=== PATIENT | male | born 1970 | race Caucasian/White ===

== ENCOUNTER 2021-02-22 16:03 | Inpatient (IN) | payer OTHER, SELFPAY ==
--- OUTSIDE RECORDS SUMMARY | 2021-02-22 16:06 | XMS REPORT | Continuity of Care Document ---
:1970 Author Organization [facility] t Address [address] Garcia [address] [place] [id number] Care Team Providers Name Role Phone Dennis Gagnon DO Primary Care Physician Shelby Valdez DO Attending Clinician SAMI Attending Clinician Unavailable Payers Payer Name Policy Type Policy Number Effective Date Expiration Date S ource 90 [id number] 2019 [employer]ondenominational DEGREE/ENTRUS 00:00:00 [facility] TENTRU / 90 DEGREE BENEFITSxxxxx 52030/08/2019- PresentCommer cial Problems Condition Condition Condition Status Onset Resolution Last Treating Co mments Source Name Details Category Date Date Treatment Clinician Date Kidney Kidney Disease Active Overview: Method i stones stones 3-[address] [facility] [address] 00:00: g of this Hospita 00 note l might be different from the original. Added automatic ally from request for surgery [id number] Allergies, Adverse Reactions, Alerts This patient has no known allergies or adverse reactions. Family History Family Member Diagnosis Comments Start Date Stop Date Source Natural father Alcohol abuse [facility] Natural mother No Known Problems Met [facility] Social History Social Habit Start Date Stop Date Quantity Comments Source Alcohol intake 2021-01-03 2021-01-03 0 /d [facility] 00:00:00 00:00:00 Tobacco use and 2021-01-03 2021-01-03 Never used [facility] exposure 00:00:00 00:00:00 Sex [birth year] [facility] 00:00:00 00:00:00 Smoking Status Start Date Stop Date Source Never smoker [facility] al Medications Ordered Filled Start Stop Current Ordering Indication Dosage Frequency Signature Comments Components Source Medication Medication Date Date Medication? Clinician (SIG) Name Name methylPREDN 4mg Q.5D Take 4 mg [facility] ISolone 01-[address] (MEDROL 15:59: 00:00 (two) Hospita DOSEPAK) 4 07 :00 times a l mg tablet day. follow package directions meloxicam Yes 15mg QD Take 15 mg Me thodi (MOBIC) 15 01-[address] mg tablet 15:42: daily. Hospit a 45 l predniSONE Take 2 Meth sonya (DELTASONE) 01-[address] 20 mg 00:00: 04:59 (40 mg Hospita tablet 00 :00 total) by l mouth daily for 2 days, THEN 1 tablet (20 mg total) daily for 2 days. cyclobenzap 10mg [id number] Take 1 Methodi rine 08-15-12 [id number] tablet (10 st (FLEXERIL) 00:00: 05:59 3D mg total) H ospita 10 mg 00 :00 by mouth 3 l tablet (three) times a day as needed for muscle spasms for up to 30 days. predniSONE Take 2 Meth sonya (DELTASONE) 08-15 02-[address] 20 mg 00:00: 05:59 (40 mg Hospita tablet 00 :00 total) by l mouth daily for 4 days, THEN 1 tablet (20 mg total) daily for 4 days. Vital Signs Vital Name Observation Time Observation Value Comments Source Body height 2021-01-03 15:42:00 177.8 cm [facility] Body weight 2021-01-03 15:42:00 106.142 kg [facility] BMI 2021-01-03 15:42:00 33.58 kg/m2 [facility] Procedures This patient has no known procedures. Plan of Care Planned Activity Planned Date Details Comments Source Future Scheduled Test COVID-19 VACCINE (1) [facility] [code = COVID-19 VACCINE (1)] Future Scheduled Test Hepatitis C screening [facility] (procedure) [code = 545834711] Future Scheduled Test INFLUENZA VACCINE [facility] [code = INFLUENZA VACCINE] Encounters Start End Encounter Admission Attending Care Care Encounter Source Date/Time Date/Time Type Type Clinicians Facility Department ID 2021-01-03 2021-01-03 Office José MiguelEugene monroe 1.2.840.1 [id number] [facility] 10:14:18 11:03:36 [address] [place]. [address]1.[address] 3.430.2.7 Hospit a .3.687983 l .8 2021-01-03 2021-01-03 Travel 1.2.840.1 [id number] [facility] 00:00:00 00:00:[address] 3.430.2.7 0.2.7.3.698 Ho spita .3.226265 084.8 l .8 2021-01-03 2021-01-03 Outpatient [facility] [id number] [address] [place] 00:00:00 00:00:[address] 2020-08-15 2020-08-15 Telemedici Eugene Valdez 1.2.840.1 [id number] [facility] 14:35:08 14:42:46 [place] 3.430.2.7 Hospit a .3.410359 l .8 2020-08-15 2020-08-15 Outpatient JOSÉ MIGUEL [facility] [id number] [place] 00:00:00 00:00:[address] 2020-01-17 2020-01-17 Outpatient JOSÉ MIGUEL [facility] [id number] [place] 00:00:00 00:00:[address] 2020-01-12 2020-01-12 [id number] [place] 00:00:00 00:00:[address] 2019-12-29 2019-12-29 [id number] [place] 00:00:00 00:00:[address] 2019-12-29 2019-12-29 Outpatient JOSÉ MIGUEL, [facility] [id number] [place] 00:00:00 00:00:[address] 2019-09-25 2019-09-25 Outpatient SAMI [facility] [id number] [place] 00:00:00 00:00:00 PRISCILLA [address] 2019-09-17 2019-09-17 Outpatient SAMI [facility] [id number] [place] 00:00:00 00:00:00 PRISCILLA [address] 2019-09-15 2019-09-15 Outpatient SAMI [facility] [id number] [place] 00:00:00 00:00:00 PRIS[address]LLA [address] Results This patient has no known results.
[2021-02-22 17:38] LABS: Absolute Lymphocytes (CBC) 0.4 K/uL (0.7-4.9); Hematocrit 49.7 % (39.6-49.0); RBC Red Blood Cell Count 5.66 M/uL (4.33-5.43)
[2021-02-22 17:40] LABS: Protime INR 1.28
--- NOTE | 2021-02-22 17:46 | RAD REPORT ---
EXAM DESCRIPTION: RAD - Chest Pa And Lat (2 Views) - 02/22/2021 5:34 pm CLINICAL HISTORY: SOB Chest pain. COMPARISON: No comparisons FINDINGS: Slfm-oh-pnsuphoe pulmonary opacities are present, greater on the left. This likely represe nts infection/COVID infection. The heart is normal in size. No displaced fractures.
[2021-02-22 18:06] LABS: ALT/SGPT 49 U/L (12-78); AST/SGOT 53 U/L (15-37); Albumin 3.3 g/dL (3.4-5.0); Alkaline Phosphatase 57 U/L (45-117); BUN Blood Urea Nitrogen 15 mg/dL (7-18); Bicarbonate 27 mmol/L (21-32); Bilirubin Direct 0.4 mg/dL (0-0.2); Bilirubin Total 0.9 mg/dL (0.2-1.0); Glucose Level 121 mg/dL (74-106); Magnesium 2.2 mg/dL (1.8-2.4); NT PRO-BNP 90 pg/mL (<125); Potassium 4.1 mmol/L (3.5-5.1); Protein, Total 7.3 g/dL (6.4-8.2); Sodium Level 130 mmol/L (136-145); Troponin (Emerg Dept Use Only) < 0.02 ng/mL (0.0-0.045)
[2021-02-22] MEDS ORDERED: ACETAMINOPHEN 500 MG TAB ONE ×2 (18:11→21:17)
[2021-02-22] MEDS ORDERED: ONDANSETRON 4 MG/2 ML VIAL ONE ×2 (18:11→21:17)
[2021-02-22] MEDS ORDERED: NA CHLORIDE 0.9% 1,000 ML ONE (18:25)
[2021-02-22 18:48] LABS: Ferritin 1118.6 ng/mL (26-388)
--- NOTE | 2021-02-22 19:01 | RAD REPORT ---
EXAM DESCRIPTION: CT - Chest For Pe Angio - 02/22/2021 6:50 pm CLINICAL HISTORY: Chest pain. Cough;SOB COMPARISON: No comparisons TECHNIQUE: CT angiogram of the pulmonary arteries was performed with MIP. All CT scans are performed using dose optimization technique as appropriate and may include automated exposure control or mA/KV adjustment according to patient size. FINDINGS: No evidence of pulmonary thromboembolism. No acute aortic finding demonstrated. Moderate bilateral confluent consolidation is present most compatible with COVID-19. No significant pericardial or pleural fluid. No concerning bony finding. IMPRESSION: No evidence of pulmonary thromboembolism. Moderate pulmonary findings of COVID-19 infection suspected.
[2021-02-22] MEDS ORDERED: METHYLPREDNISOLONE 125 MG INJ ONE (19:26)
--- NOTE | 2021-02-22 19:32 | EDPHYS ---
Physician Documentation [facility] Name: Zaid Shabazz Age: 50 yrs Sex: Male : 1970 Arrival Date: 02/22/2021 Time: 16:07 Bed 7 Private MD: ED Physician Jakob Stallworth HPI: 02/22 17:30 This 50 yrs old Male presents to ER via Ambulatory with complaints of Covid + cp sob, Dizziness. 17:30 The patient has shortness of breath at rest. cp 17:30 Onset: The symptoms/episode began/occurred yesterday, and became worse today. Duration: cp The symptoms are continuous, and are steadily getting worse. The patient's shortness of breath is aggravated by light activity. Associated signs and symptoms: Pertinent positives: non-productive cough, dizziness, Pertinent negatives: chest pain, diaphoresis, fever, vomiting. Patient reports testing positive for COVID-10 on 02-17-2021. Patient reports he is not vaccinated against the COVID-19 virus and presents to ED with who has similar symptoms. Historical: - Allergies: 17:10 No Known Allergies; kg - Home Meds: 17:10 None [Active]; kg - PMHx: 17:10 None; kg - PSHx: 17:10 None; kg - Immunization history:: Adult Immunizations up to date, Client reports having NOT received the Covid vaccine. - Social history:: Smoking status: Patient denies any tobacco usage or history of. ROS: 17:35 Constitutional: Positive for body aches, Negative for fever, poor PO intake. cp 17:35 Eyes: Negative for injury, pain, redness, and discharge. cp 17:35 ENT: Negative for ear pain, sore throat, difficulty swallowing, difficulty handling secretions. 17:35 Cardiovascular: Negative for chest pain, edema, palpitations. 17:35 Respiratory: Positive for cough, "sounds productive", shortness of breath, at rest. Negative for wheezing. 17:35 Abdomen/GI: Positive for nausea, Negative for abdominal pain, vomiting, diarrhea, constipation. 17:35 Back: Negative for radiated pain. 17:35 Neuro: Positive for dizziness, Negative for altered mental status, loss of consciousness, syncope, weakness. 17:35 All other systems are negative. Exam: 17:40 Constitutional: The patient appears in no acute distress, alert, awake, cp non-diaphoretic, non-toxic, well developed, well nourished. 17:40 Head/Face: Normocephalic, atraumatic. cp 17:40 Eyes: Periorbital structures: appear normal, Conjunctiva: normal, no exudate, no injection, Sclera: no appreciated abnormality, Lids and lashes: appear normal, bilaterally. 17:40 ENT: External ear(s): are unremarkable, Nose: is normal, Mouth: Lips: moist, Oral mucosa: pink and intact, moist, Posterior pharynx: Airway: no evidence of obstruction, patent, swelling, is not appreciated, erythema, is not appreciated, exudate, is not appreciated. 17:40 Neck: ROM/movement: is normal, is supple, without pain, no range of motions limitations, no meningismus. 17:40 Chest/axilla: Inspection: normal, Palpation: is normal, no crepitus, no tenderness. 17:40 Cardiovascular: Rate: normal, Rhythm: regular, Edema: is not appreciated, JVD: is not appreciated. 17:40 Respiratory: the patient does not display signs of respiratory distress, Respirations: labored breathing, that is mild, shallow respirations, that is mild, Breath sounds: decreased breath sounds, that are mild, throughout, stridor, is not appreciated, wheezing: is not appreciated. 17:40 Abdomen/GI: Exam negative for discomfort, distension, guarding, Inspection: abdomen appears normal. 17:40 Back: pain, is absent, ROM is normal. 17:40 Skin: no rash present. 17:40 Neuro: Orientation: to person, place \\T\\ time. Mentation: is normal, Motor: moves all fours, strength is normal. Vital Signs: 17:00 Pulse Ox 85% on R/A; kg 17:04 BP 132 / 86; Pulse 96; Resp 20; Temp 98.8; Pulse Ox 95% on 3 lpm NC; Weight 99.79 kg kg (R); Height 5 ft. 10 in. (177.80 cm) (R); Pain 9/10; 17:45 BP 133 / 85; Pulse 101; Resp 19; Temp 100.4(O); Pulse Ox 92% on 4 lpm NC; ld1 19:34 BP 128 / 86; Pulse 96; Resp 18; Temp 99.4(O); Pulse Ox 94% on 4 lpm NC; ld1 02/23 17:35 BP 135 / 82; Pulse 74; Resp 18; Pulse Ox 91% on 4 lpm NC; dh3 02/22 17:04 Body Mass Index 31.57 (99.79 kg, 177.80 cm) kg MDM: 02/22 17:47 Patient medically screened. cp 18:00 Differential diagnosis: Bronchitis CHF exacerbation, Myocardial Infarction pneumonia, cp Pneumothorax pulmonary edema, Pulmonary Embolism Sepsis Unstable Angina. 19:10 Data reviewed: vital signs, nurses notes, lab test result(s), EKG, radiologic studies, cp CT scan, plain films. 19:10 Test interpretation: by ED physician or midlevel provider: ECG, plain radiologic cp studies. Counseling: I had a detailed discussion with the patient and/or guardian regarding: the historical points, exam findings, and any diagnostic results supporting the discharge/admit diagnosis, lab results, radiology results, the need for further work-up and treatment in the hospital. Response to treatment: the patient's symptoms have mildly improved after treatment. 19:15 Physician consultation: Geronimo ANDERSON was called at 19:15, was contacted at 19:15, regarding admission, to the telemetry unit. patient's condition, and will see patient in ED, shortly. 02/22 17:13 Order name: D-Dimer; Complete Time: 18:32 kg 02/22 17:22 Order name: Basic Metabolic Panel; Complete Time: 18:32 kg 02/22 18:33 Interpretation: Normal except: NA 130; CL 96; GLUC 121; GFR 60. cp 02/22 17:22 Order name: CBC with Diff; Complete Time: 18:32 kg 02/22 17:22 Order name: LFT's; Complete Time: 18:32 kg 02/22 17:22 Order name: Magnesium; Complete Time: 18:32 kg 02/22 17:22 Order name: NT PRO-BNP; Complete Time: 18:32 kg 02/22 17:22 Order name: PT-INR; Complete Time: 17:50 kg 02/22 17:22 Order name: Troponin (emerg Dept Use Only); Complete Time: 18:32 kg 02/22 17:47 Order name: CRP; Complete Time: 18:55 cp 02/22 18:55 Interpretation: Abnormal: C-REACTIVE PROT 104.00. cp 02/22 17:47 Order name: Ferritin; Complete Time: 18:55 cp 02/22 20:39 Order name: C-Reactive Protein EDMS 02/22 20:39 Order name: C-Reactive Protein EDMS 02/22 20:39 Order name: C-Reactive Protein EDMS 02/22 20:39 Order name: C-Reactive Protein EDMS 02/22 20:39 Order name: Comprehensive Metabolic Panel EDMS 02/22 20:39 Order name: Comprehensive Metabolic Panel EDMS 02/22 20:39 Order name: Comprehensive Metabolic Panel EDMS 02/22 20:39 Order name: Comprehensive Metabolic Panel EDMS 02/22 20:39 Order name: Comprehensive Metabolic Panel EDMS 02/22 20:40 Order name: Urinalysis EDMS 02/22 20:40 Order name: CBC with Automated Diff EDMS 02/22 20:40 Order name: CBC with Automated Diff EDMS 02/22 20:40 Order name: CBC with Automated Diff EDMS 02/22 20:40 Order name: CBC with Automated Diff EDMS 02/22 20:40 Order name: CBC with Automated Diff EDMS 02/22 20:40 Order name: D-Dimer EDMS 02/22 20:40 Order name: D-Dimer EDMS 02/22 20:40 Order name: D-Dimer EDMS 02/22 20:40 Order name: D-Dimer EDMS 02/22 20:41 Order name: Ferritin EDMS 02/22 17:13 Order name: XRAY Chest Pa And Lat (2 Views); Complete Time: 17:50 kg 02/22 18:36 Order name: CT Chest For PE Angio; Complete Time: 19:05 cp 02/22 20:41 Order name: Ferritin EDMS 02/22 20:41 Order name: Ferritin EDMS 02/22 20:41 Order name: Ferritin EDMS 02/22 20:41 Order name: Lipid Profile EDMS 02/22 20:41 Order name: Lipid Profile EDMS 02/22 20:41 Order name: Magnesium EDMS 02/22 20:41 Order name: Magnesium EDMS 02/22 20:41 Order name: Magnesium EDMS 02/22 20:41 Order name: Magnesium EDMS 02/22 20:41 Order name: Magnesium EDMS 02/22 20:41 Order name: T4 Free EDMS 02/22 20:41 Order name: T4 Free EDMS 02/22 20:41 Order name: Thyroid Stimulating Hormone EDMS 02/22 20:41 Order name: Thyroid Stimulating Hormone EDMS 02/23 13:16 Order name: CBC Smear Scan EDMS 02/24 12:09 Order name: CBC Smear Scan EDMS 02/25 01:27 Order name: Urine Microscopic Only EDMS 02/25 08:19 Order name: Glucose, Ancillary Testing EDMS 02/26 03:26 Order name: C-Reactive Protein EDMS 02/26 03:26 Order name: Ferritin EDMS 02/26 07:02 Order name: Urine Culture EDMS 02/27 05:16 Order name: CBC with Automated Diff EDMS 02/27 05:27 Order name: Basic Metabolic Panel EDMS 02/27 05:27 Order name: C-Reactive Protein EDMS 02/27 05:27 Order name: Ferritin EDMS 02/27 07:40 Order name: RAD EDMS 02/22 17:22 Order name: IV Saline Lock; Complete Time: 17:26 kg 02/22 17:22 Order name: Labs collected and sent; Complete Time: 17:26 kg 02/22 17:22 Order name: O2 Per Protocol; Complete Time: 17:26 kg 02/22 17:22 Order name: O2 Sat Monitoring; Complete Time: 17:26 kg 02/22 20:40 Order name: Respiratory Therapy Consult EDMS 02/22 20:40 Order name: Heart Healthy EDMS Administered Medications: 17:45 Drug: Tylenol 1000 mg Route: PO; ld1 18:52 Follow up: Response: No adverse reaction ld1 18:00 Drug: Zofran (Ondansetron) 4 mg Route: IVP; Site: left antecubital; ld1 18:23 Follow up: Response: No adverse reaction ld1 18:15 Drug: NS 0.9% 1000 ml Route: IV; Rate: 1 bolus; Site: left antecubital; ld1 18:23 Follow up: Response: Marked relief of symptoms; IV Intake: 1000ml ld1 19:08 Drug: SOLU-Medrol (methylPrednisoLONE) 125 mg Route: IVP; Site: left antecubital; ld1 19:08 Follow up: Response: No adverse reaction ld1 Disposition Summary: 02/22/21 19:31 Hospitalization Ordered Hospitalization Status: Inpatient Admission cp Provider: Adriano Jimenez cp Condition: Stable cp Problem: new cp Symptoms: have improved cp Bed/Room Type: Standard cp Location: Telemetry/MedSurg (Inpatient)(02/27/21 17:58) Room Assignment: 405(02/27/21 17:58) Diagnosis - Other viral pneumonia cp - SARS-associated coronavirus as the cause of diseases classified elsewhere cp - Hypoxemia cp Forms: - Medication Reconciliation Form cp - SBAR form cp Addendum: 03/01/2021 18:55 Co-signature as Attending Physician, Jakob Stallworth MD I agree with the assessment and r n plan of care. Attestation: The patient's history, exam findings, diagnostics, and a summary of any interventions or procedures was reviewed in detail with Frank PRECIADO. Signatures: Dispatcher [employer] Annia Cuadra RN RN kl Nieto, Roman, MD MD rn Page, Corey, PA PA Hannah Seth RN RN Jolanta Yan RN RN ld1 Mica Dahl RN RN kg Corrections: (The following items were deleted from the chart) 02/22 23:30 19:31 Telemetry/MedSurg (Inpatient) cp cg 23:30 19:31 cp cg 02/27 17:58 02/22 23:30 [facility] ER HOLD cg kl 02/27 17:58 02/22 23:30 ERHOLD- cg
--- NOTE | 2021-02-22 19:32 | ER ---
Nurse's Notes [facility] Name: Zaid Shabazz Age: 50 yrs Sex: Male : 1970 Arrival Date: 02/22/2021 Time: 16:07 Bed 7 Private MD: Diagnosis: Other viral pneumonia;SARS-associated coronavirus as the cause of diseases classified elsewhere;Hypoxemia Presentation: 02/22 17:04 Chief complaint: Patient states: Cough, SOB, Dizziness, Nausea, diarrhea. Pt stated, " kg I've been feeling very SOB and dizzy x 1 day." Pt was diagnosed COVID + 02/17. Coronavirus screen: Client denies travel out of the [place] in the last 14 days. At this time, unable to obtain information related to travel outside the [place] Ebola Screen: Patient negative for fever greater than or equal to 101.5 degrees Fahrenheit, and additional compatible Ebola Virus Disease symptoms Patient denies exposure to infectious person. Patient denies travel to an Ebola-affected area in the 21 days before illness onset. Initial Sepsis Screen: Does the patient meet any 2 criteria? No. Patient's initial sepsis screen is negative. Does the patient have a suspected source of infection? No. Patient's initial sepsis screen is negative. Risk Assessment: Do you want to hurt yourself or someone else? Patient reports no desire to harm self or others. Onset of symptoms was February 21, 2021. 17:04 Method Of Arrival: Ambulatory kg 17:04 Acuity: RAH 3 kg Triage Assessment: 17:10 General: Appears in no apparent distress. Behavior is calm, cooperative, appropriate kg for age, quiet. Pain: Complains of pain in Head, chest Pain radiates to Generalized. Respiratory: Reports shortness of breath at rest on exertion cough that is productive, pain with cough. Historical: - Allergies: 17:10 No Known Allergies; kg - Home Meds: 17:10 None [Active]; kg - PMHx: 17:10 None; kg - PSHx: 17:10 None; kg - Immunization history:: Adult Immunizations up to date, Client reports having NOT received the Covid vaccine. - Social history:: Smoking status: Patient denies any tobacco usage or history of. Screenin:45 Abuse screen: Denies threats or abuse. Denies injuries from another. Nutritional ld1 screening: No deficits noted. Tuberculosis screening: No symptoms or risk factors identified. Fall Risk None identified. Assessment: 17:45 General: Appears in no apparent distress. comfortable, Behavior is calm, cooperative, ld1 appropriate for age. Pain: Denies pain. Neuro: Level of Consciousness is awake, alert, obeys commands, Oriented to person, place, time, situation. Cardiovascular: Capillary refill < 3 seconds Patient's skin is warm and dry. Respiratory: Reports shortness of breath at rest cough that is Airway is patent Respiratory effort is even, unlabored, Respiratory pattern is regular, symmetrical. 17:45 GI: Abdomen is flat, non-distended. : No signs and/or symptoms were reported ld1 regarding the genitourinary system. EENT: No signs and/or symptoms were reported regarding the EENT system. Derm: Skin is clammy. Musculoskeletal: No signs and/or symptoms reported regarding the musculoskeletal system. 19:34 Reassessment: Patient appears in no apparent distress at this time. No changes from ld1 previously documented assessment. Vital Signs: 17:00 Pulse Ox 85% on R/A; kg 17:04 BP 132 / 86; Pulse 96; Resp 20; Temp 98.8; Pulse Ox 95% on 3 lpm NC; Weight 99.79 kg kg (R); Height 5 ft. 10 in. (177.80 cm) (R); Pain 9/10; 17:45 BP 133 / 85; Pulse 101; Resp 19; Temp 100.4(O); Pulse Ox 92% on 4 lpm NC; ld1 19:34 BP 128 / 86; Pulse 96; Resp 18; Temp 99.4(O); Pulse Ox 94% on 4 lpm NC; ld1 02/23 17:35 BP 135 / 82; Pulse 74; Resp 18; Pulse Ox 91% on 4 lpm NC; dh3 02/22 17:04 Body Mass Index 31.57 (99.79 kg, 177.80 cm) kg ED Course: 02/22 16:07 Patient arrived in ED. ds1 17:10 Triage completed. kg 17:18 Frank Reynolds PA is PHCP. cp 17:18 Jakob Stallworth MD is Attending Physician. cp 17:24 Jolanta Yan, TABATHA is Primary Nurse. ld1 17:34 XRAY Chest Pa And Lat (2 Views) In Process Unspecified. EDMS 17:45 Patient has correct armband on for positive identification. Bed in low position. Call ld1 light in reach. Pulse ox on. NIBP on. Warm blanket given. 17:45 No provider procedures requiring assistance completed. Inserted saline lock: 20 gauge ld1 in left antecubital area, using aseptic technique. Blood collected. 18:49 CT Chest For PE Angio In Process Unspecified. EDMS 19:30 Adriano Jimenez MD is Hospitalizing Provider. 02/27 07:27 Primary Nurse role handed off by Jolanta Yan, TABATHA 07:27 Karmen Harp RN is Primary Nurse. 19:08 Primary Nurse role handed off by Karmen Harp RN Administered Medications: 02/22 17:45 Drug: Tylenol 1000 mg Route: PO; ld1 18:52 Follow up: Response: No adverse reaction ld1 18:00 Drug: Zofran (Ondansetron) 4 mg Route: IVP; Site: left antecubital; ld1 18:23 Follow up: Response: No adverse reaction ld1 18:15 Drug: NS 0.9% 1000 ml Route: IV; Rate: 1 bolus; Site: left antecubital; ld1 18:23 Follow up: Response: Marked relief of symptoms; IV Intake: 1000ml ld1 19:08 Drug: SOLU-Medrol (methylPrednisoLONE) 125 mg Route: IVP; Site: left antecubital; ld1 19:08 Follow up: Response: No adverse reaction ld1 Intake: 18:23 IV: 1000ml; Total: 1000ml. ld1 Outcome: 19:31 Decision to Hospitalize by Provider. 02/27 20:09 Patient left the ED. ms4 Signatures: Dispatcher [employer] EDMS Karmen Harp, Jing Bowie RN1 Frank Reynolds PA PA cp Herrera, Deanna 3 Jolanta Yan, RN RN ld1 Mica Dahl RN RN kg Stroud, Mikaela RN RN ms4
--- NOTE | 2021-02-22 20:11 | P.HP ---
Certification for Inpatient Patient admitted to: Inpatient With expected LOS: >2 Midnights Patient will require the following post-hospital care: None Practitioner: I am a practitioner with admitting privileges, knowledge of patient current condition, hospital course, and medical plan of care. Services: Services provided to patient in accordance with Admission requirements found in Title 42 Section 412.3 of the Code of Federal Regulations <FerGeronimo - Last Filed: 02/22/21 20:00> Patient History Date of Service: 02/22/21 Primary Care Provider: Dr. Gagnon Reason for admission: COVID-19 pneumonia History of Present Illness: 50-year-old otherwise healthy male presents emergency department for shortness of breath. Patient reports testing positive for Covid on 02/17/2021, has been on Decadron, ivermectin at home. Patient reports increasing shortness of breath over the course of the last few days. Patient was evaluated in the emergency room and labs are significant for D-dimer 724 sodium 130 chloride 96 GFR 60 glucose 121 ferritin 1118.6 C-reactive protein 104 chest x-ray demonstrates mild to moderate pulmonary opacities greater on the left likely representing Covid, CT PE protocol negative for pulmonary embolism again demonstrating COVID-19 pneumonia. Patient requiring oxygen about 4 L per nasal cannula at this time to maintain saturations greater than 90%. ED provider wishes to admit for further evaluation and management. - Past Medical/Surgical History -: None -: none Psychosocial/ Personal History: Lives with , works at [employer] - Social History Smoking Status: Never smoker Alcohol use: No CD- Drugs: No Caffeine use: No Place of Residence: Home <Geronimo Monroe - Last Filed: 02/22/21 20:00> Date of Service: 02/23/21 <Adriano Jimenez - Last Filed: 02/23/21 16:14> Review of Systems 10-point ROS is otherwise unremarkable Respiratory: Cough, Dry, Shortness of Breath, SOB with Excertion <Geronimo Monroe - Last Filed: 02/22/21 20:00> Physical Examination - Physical Exam General: Alert, In no apparent distress, Oriented x3 HEENT: Atraumatic, PERRLA, Mucous membr. moist/pink, EOMI, Sclerae nonicteric Neck: Supple, 2+ carotid pulse no bruit, No LAD, Without JVD or thyroid abnormality Respiratory: Normal air movement, Diminished Cardiovascular: Regular rate/rhythm, Normal S1 S2 Gastrointestinal: Normal bowel sounds, No tenderness Musculoskeletal: No tenderness Integumentary: No rashes Neurological: Normal gait, Normal speech, Normal strength at 5/5 x4 extr, Normal tone, Normal affect Lymphatics: No axilla or inguinal lymphadenopathy - Studies Laboratory Data (last 24 hrs) 02/22/21 17:28: PT 14.8 H, INR 1.28 02/22/21 17:28: WBC 9.90, Hgb 17.1, Hct 49.7 H, Plt Count 160 02/22/21 17:28: Sodium 130 L, Potassium 4.1, BUN 15, Creatinine 1.27, Glucose 121 H, Magnesium 2.2, Total Bilirubin 0.9, AST 53 H, ALT 49, Alkaline Phosphatase 57 <Geronimo Monroe - Last Filed: 02/22/21 20:00> - Studies Laboratory Data (last 24 hrs) 02/22/21 17:28: PT 14.8 H, INR 1.28 02/22/21 17:28: WBC 9.90, Hgb 17.1, Hct 49.7 H, Plt Count 160 02/22/21 17:28: Sodium 130 L, Potassium 4.1, BUN 15, Creatinine 1.27, Glucose 121 H, Magnesium 2.2, Total Bilirubin 0.9, AST 53 H, ALT 49, Alkaline Phosphatase 57 <Adriano Jimenez - Last Filed: 02/23/21 16:14> Assessment and Plan - Plan Assessment: Acute hypoxic respiratory failure secondary to COVID-19 pneumonia Plan: Acute hypoxic respiratory failure secondary to COVID-19 pneumonia: Continue with IV steroids, oral supplements, patient status post Decadron/ivermectin at home per primary care doctor. CRP significantly elevated but patient requiring about 4 L per nasal cannula at this time, may qualify for baricitinib in the next 24 hours. Pulmonology consulted for additional assistance, daily right saturations, saturations for home O2. Appreciate further input from pulmonology. DVT PPX: Lovenox Code status: Full Discharge Plan: Home Plan to discharge in: 48 Hours - Advance Directives Does patient have a Living Will: Yes Does patient have a Durable POA for Healthcare: Yes - Code Status/Comfort Care Code Status Assessed: Yes (FC) Critical Care: No Time Spent Managing Pts Care (In Minutes): 55 <Geronimo Monroe - Last Filed: 02/22/21 20:00> Physician Review: Patient Assessed, Agree with Above Assessment and Plan <Adriano Jimenez - Last Filed: 02/23/21 16:14>
[2021-02-22] MEDS ORDERED: BENZONATATE 100 MG CAP PO ONE (21:16)
[2021-02-23] MEDS: MELATONIN 5 MG TABLET PO PRN ×2 (00:30→21:11)
[2021-02-23] MEDS: METHYLPREDNISOLONE 125 MG INJ IV SCH ×3 (00:30→17:00)
[2021-02-23] MEDS: ASCORBIC ACID 500 MG TABLET PO SCH ×5 (00:30→21:00)
[2021-02-23] MEDS ORDERED: ASCORBIC ACID 500 MG TABLET ONE ×5 (00:32→20:49)
[2021-02-23] MEDS ORDERED: MELATONIN 5 MG TABLET PO ONE ×2 (00:32→20:49)
[2021-02-23] MEDS ORDERED: METHYLPREDNISOLONE 40 MG INJ ONE ×3 (00:33→17:49)
[2021-02-23] MEDS: ACETAMINOPHEN 500 MG TAB PO PRN (00:40)
[2021-02-23] MEDS ORDERED: ACETAMINOPHEN 500 MG TAB ONE ×2 (00:53→06:33)
[2021-02-23] MEDS: ONDANSETRON 4 MG/2 ML VIAL IV PRN (06:24)
[2021-02-23] MEDS ORDERED: ONDANSETRON 4 MG/2 ML VIAL ONE (06:33)
[2021-02-23 06:42] LABS: Absolute Lymphocytes (CBC) 0.5 K/uL (0.7-4.9); Basophils % 0.1 % (0-1.3); Hematocrit 49.3 % (39.6-49.0); Lymphocytes % 8.3 % (15.3-44.8); MPV 8.6 fL (7.6-11.3)
[2021-02-23 06:52] LABS: Bilirubin Total 0.7 mg/dL (0.2-1.0); Magnesium 2.6 mg/dL (1.8-2.4); Potassium 4.4 mmol/L (3.5-5.1); Thyroid Stimulating Hormone 0.598 uIU/mL (0.360-3.740)
[2021-02-23] MEDS ORDERED: THIAMINE HCL 100 MG TABLET ONE (08:28)
[2021-02-23] MEDS ORDERED: VITAMIN D 1000 UNIT TAB ONE (08:29)
[2021-02-23] MEDS ORDERED: METHYLPREDNISOLONE 125 MG INJ ONE (08:29)
[2021-02-23] MEDS ORDERED: ASPIRIN EC 81 MG TAB PO ONE (08:29)
[2021-02-23] MEDS ORDERED: ZINC SULFATE 220 MG CAP ONE (08:29)
[2021-02-23] MEDS ORDERED: ENOXAPARIN 40 MG/0.4 ML SQ ONE (08:29)
[2021-02-23] MEDS: ZINC SULFATE 220 MG CAP PO SCH (09:00)
[2021-02-23] MEDS: ENOXAPARIN 40 MG/0.4 ML SQ SCH (09:00)
[2021-02-23] MEDS: VITAMIN D 1000 UNIT TAB PO SCH (09:00)
[2021-02-23] MEDS: ASPIRIN EC 81 MG TAB PO SCH (09:00)
[2021-02-23] MEDS: THIAMINE HCL 100 MG TABLET PO SCH (09:00)
--- NOTE | 2021-02-23 10:17 | P.CNS ---
Date of Consult: 02/23/21 Reason for Consult: COVID penumonia Primary Care Provider: Dr. Gagnon Chief Complaint: COVID-19 pneumonia History of Present Illness: age 50 AW COVID penumonia. was on steroids and ivermectin at home/ AW resp failure Allergies No Known Allergies Allergy (Unverified 02/22/21 20:38) - Past Medical/Surgical History Diabetic: No -: None -: none Psychosocial/ Personal History: Lives with , works at [employer] - Social History Alcohol use: No CD- Drugs: No Caffeine use: No Place of Residence: Home Review of Systems General: Weakness Respiratory: Shortness of Breath Physical Examination Temp Pulse Resp BP Pulse Ox 98.1 F 73 20 120/75 90 L 02/23/21 04:00 02/23/21 08:00 02/23/21 08:00 02/23/21 08:00 02/23/21 08:00 General: Alert, In no apparent distress, Oriented x3, Cooperative Laboratory Data (last 24 hrs) 02/22/21 17:28: PT 14.8 H, INR 1.28 02/22/21 17:28: WBC 9.90, Hgb 17.1, Hct 49.7 H, Plt Count 160 02/22/21 17:28: Sodium 130 L, Potassium 4.1, BUN 15, Creatinine 1.27, Glucose 121 H, Magnesium 2.2, Total Bilirubin 0.9, AST 53 H, ALT 49, Alkaline Phosphatase 57 - Problems (1) Pneumonia due to COVID-19 virus Current Visit: Yes Status: Acute Plan: age 50 aw COVID penumonia. Agree with present tx/NC
[2021-02-23 13:15] LABS: White Blood Cell Scan OK (OK)
[2021-02-23 13:16] LABS: Blood Morphology Comment NOT SEEN (NOT SEEN); Platelet Estimate ADEQ
--- NOTE | 2021-02-23 16:23 | P.PN ---
Subjective Date of Service: 02/23/21 Primary Care Provider: Dr. Gagnon Chief Complaint: COVID-19 pneumonia Subjective: No C/O voiced, Improving Physical Examination - Vital Signs Temperature: 98.1 F Blood Pressure: 118/78 Pulse: 77 Respirations: 16 Pulse Ox (%): 92 - Physical Exam General: Alert, Oriented x3, Cooperative, Mild distress HEENT: Atraumatic, Normocephalic Neck: Supple Respiratory: Diminished Cardiovascular: Regular rate/rhythm, Normal S1 S2 Gastrointestinal: Soft and benign Musculoskeletal: No swelling Neurological: Normal speech, Normal strength at 5/5 x4 extr, Cranial nerves 3-12 intact - Studies Laboratory Data (last 24 hrs) 02/22/21 17:28: PT 14.8 H, INR 1.28 02/22/21 17:28: WBC 9.90, Hgb 17.1, Hct 49.7 H, Plt Count 160 02/22/21 17:28: Sodium 130 L, Potassium 4.1, BUN 15, Creatinine 1.27, Glucose 121 H, Magnesium 2.2, Total Bilirubin 0.9, AST 53 H, ALT 49, Alkaline Phosphatase 57 Assessment And Plan - Plan Covid 19 disease: Has been started on steroids, supplements and antipyretics. we will continue to monitor inflammatory markers. Pulm following. Respiratory failure with hypoxia: Presently on supplemental oxygen at 4 liters per min. we will wean off as tolerated. Physician Review: Patient Assessed, Agree with Above Assessment and Plan
[2021-02-24] MEDS: METHYLPREDNISOLONE 125 MG INJ IV SCH ×3 (00:51→17:00)
[2021-02-24] MEDS ORDERED: METHYLPREDNISOLONE 125 MG INJ ONE ×3 (01:11→15:34)
[2021-02-24 06:37] LABS: Absolute Lymphocytes (CBC) 0.3 K/uL (0.7-4.9); Basophils % 0.1 % (0-1.3); Hematocrit 49.2 % (39.6-49.0); Lymphocytes % 2.2 % (15.3-44.8); MPV 8.8 fL (7.6-11.3); RBC Red Blood Cell Count 5.62 M/uL (4.33-5.43)
--- NOTE | 2021-02-24 06:43 | P.PN ---
Subjective Date of Service: 02/24/21 Primary Care Provider: Dr. Gagnon Chief Complaint: COVID-19 pneumonia Subjective: Worsening (Overall feels a little bit better, continues with shortness of breath, oxygen requirement increased) Review of Systems 10-point ROS is otherwise unremarkable Physical Examination - Vital Signs Temperature: 97.8 F Blood Pressure: 118/68 Pulse: 74 Respirations: 20 Pulse Ox (%): 90 Assessment & Plan Physician Review Additional Text: Physical exam GEN: Alert, oriented, NAD HEENT: Normal conjunctiva, sclera anicteric CV: Regular rate and rhythm, no edema Pulm: Mildly labored respiration on 15 L nasal cannula ABD: Soft, nontender, nondistended Neuro: Normal speech, normal affect Problem list Acute hypoxemic respiratory failure secondary to COVID-19 pneumonia Continue treatment per Covid protocol, IV steroids, vitamin supplementation, oxygen supplementation Pulmonology consulted Wean oxygen as tolerated Significantly elevated inflammatory markers, with some improvement today Oxygen requirement up to 15 L, will order baricitinib and see if patient qualifies Patient otherwise denies other symptoms at this time Continue aspirin and Lovenox Dispo: Anticipate discharge home with home oxygen in 2-3 days Time Spent Managing Pts Care (In Minutes): 45
[2021-02-24 07:04] LABS: Potassium 3.9 mmol/L (3.5-5.1)
[2021-02-24 07:31] LABS: Albumin 2.8 g/dL (3.4-5.0); Bilirubin Total 0.6 mg/dL (0.2-1.0); C-Reactive Protein 49.8 mg/L (<3.00); Ferritin 1152.7 ng/mL (26-388); Magnesium 2.4 mg/dL (1.8-2.4); Protein, Total 6.8 g/dL (6.4-8.2)
[2021-02-24] MEDS ORDERED: ASCORBIC ACID 500 MG TABLET ONE ×3 (08:46→21:06)
[2021-02-24] MEDS ORDERED: THIAMINE HCL 100 MG TABLET ONE (08:46)
[2021-02-24] MEDS ORDERED: ASPIRIN EC 81 MG TAB PO ONE (08:46)
[2021-02-24] MEDS ORDERED: ZINC SULFATE 220 MG CAP ONE (08:47)
[2021-02-24] MEDS ORDERED: VITAMIN D 1000 UNIT TAB ONE (08:47)
[2021-02-24] MEDS ORDERED: ENOXAPARIN 40 MG/0.4 ML SQ ONE (08:47)
[2021-02-24] MEDS ORDERED: BARICITINIB 2 MG TABLET PO SCH (09:00)
[2021-02-24] MEDS: VITAMIN D 1000 UNIT TAB PO SCH (09:00)
[2021-02-24] MEDS: ENOXAPARIN 40 MG/0.4 ML SQ SCH (09:00)
[2021-02-24] MEDS: ASCORBIC ACID 500 MG TABLET PO SCH ×4 (09:00→21:00)
[2021-02-24] MEDS: ASPIRIN EC 81 MG TAB PO SCH (09:00)
[2021-02-24] MEDS: ZINC SULFATE 220 MG CAP PO SCH (09:00)
[2021-02-24] MEDS: THIAMINE HCL 100 MG TABLET PO SCH (09:00)
[2021-02-24 12:09] LABS: Blood Morphology Comment NOT SEEN (NOT SEEN); Platelet Estimate ADEQ; White Blood Cell Scan OK (OK)
[2021-02-24] MEDS ORDERED: [UNRECOGNIZED DRUG - REMARK] XX PRN (16:02)
[2021-02-25] MEDS ORDERED: METHYLPREDNISOLONE 125 MG INJ ONE (00:06)
[2021-02-25 00:59] LABS: Urine Appearance CLEAR (Clear); Urine Bilirubin NEGATIVE (Negative); Urine Blood NEGATIVE (Negative); Urine Color YELLOW (Yellow); Urine Glucose NEGATIVE (Negative); Urine Protein 1+ (Negative); Urine Specific Gravity 1.025 (1.005-1.030)
[2021-02-25] MEDS: METHYLPREDNISOLONE 125 MG INJ IV SCH ×3 (01:00→16:59)
[2021-02-25 01:17] LABS: Urine Microscopic Reflex ORDER UMIC
[2021-02-25 01:26] LABS: Urine Bacteria 20-50 /HPF (NONE SEEN); Urine RBC <5 /HPF (NONE SEEN)
[2021-02-25 01:27] LABS: Urine Mucus 1+ /HPF (NONE SEEN)
[2021-02-25 05:48] LABS: Absolute Lymphocytes (CBC) 0.2 K/uL (0.7-4.9); Basophils % 0.1 % (0-1.3); Hematocrit 48.8 % (39.6-49.0); Lymphocytes % 1.9 % (15.3-44.8); MPV 8.2 fL (7.6-11.3); RBC Red Blood Cell Count 5.53 M/uL (4.33-5.43)
[2021-02-25 06:25] LABS: Albumin 2.8 g/dL (3.4-5.0); Bilirubin Total 0.9 mg/dL (0.2-1.0); C-Reactive Protein 42.6 mg/L (<3.00); Ferritin 1174.6 ng/mL (26-388)
[2021-02-25 06:26] LABS: Magnesium 2.7 mg/dL (1.8-2.4); Potassium 4.5 mmol/L (3.5-5.1)
[2021-02-25] MEDS: ZINC SULFATE 220 MG CAP PO SCH (09:00)
[2021-02-25] MEDS: ASCORBIC ACID 500 MG TABLET PO SCH ×4 (09:00→21:00)
[2021-02-25] MEDS: VITAMIN D 1000 UNIT TAB PO SCH (09:00)
[2021-02-25] MEDS: ENOXAPARIN 40 MG/0.4 ML SQ SCH (09:00)
[2021-02-25] MEDS: THIAMINE HCL 100 MG TABLET PO SCH (09:00)
[2021-02-25] MEDS: ASPIRIN EC 81 MG TAB PO SCH (09:00)
[2021-02-25] MEDS ORDERED: ZINC SULFATE 220 MG CAP ONE (09:13)
[2021-02-25] MEDS ORDERED: VITAMIN D 1000 UNIT TAB ONE (09:13)
[2021-02-25] MEDS ORDERED: THIAMINE HCL 100 MG TABLET ONE (09:13)
[2021-02-25] MEDS ORDERED: ASCORBIC ACID 500 MG TABLET ONE ×3 (09:13→20:15)
[2021-02-25] MEDS ORDERED: ASPIRIN EC 81 MG TAB PO ONE (09:13)
[2021-02-25] MEDS ORDERED: ENOXAPARIN 40 MG/0.4 ML SQ ONE (09:14)
[2021-02-25] MEDS ORDERED: METHYLPREDNISOLONE 40 MG INJ ONE ×3 (09:14→20:15)
--- NOTE | 2021-02-25 16:06 | P.PN ---
Subjective Date of Service: 02/25/21 Primary Care Provider: Dr. Gagnon Chief Complaint: COVID-19 pneumonia Subjective: Worsening (Oxygen requirement increasing, patient feels about the same, little short of breath overnight. No new symptoms, no nausea/vomiting, no diarrhea, no chest pain. Inflammatory markers improving) Review of Systems 10-point ROS is otherwise unremarkable Physical Examination - Vital Signs Temperature: 98 F Blood Pressure: 125/68 Pulse: 85 Respirations: 25 Pulse Ox (%): 91 Assessment & Plan Physician Review Additional Text: Physical exam GEN: Alert, oriented, NAD HEENT: Normal conjunctiva, sclera anicteric CV: Regular rate and rhythm, no edema Pulm: Nonlabored respirations on high flow nasal cannula ABD: Soft, nontender, nondistended Neuro: Normal speech, normal affect Problem list Acute hypoxemic respiratory failure secondary to COVID-19 pneumonia Continue treatment per Covid protocol, IV steroids, vitamin supplementation, oxygen supplementation Pulmonology consulted Wean oxygen as tolerated Significantly elevated inflammatory markers, with some improvement today On high flow nasal cannula now, pharmacy consulted for baricitinib Patient otherwise denies other symptoms at this time Continue aspirin and Lovenox Dispo: Anticipate discharge home with home oxygen in 3-4 days Time Spent Managing Pts Care (In Minutes): 40
[2021-02-25] MEDS: MELATONIN 5 MG TABLET PO PRN (22:24)
[2021-02-25] MEDS: BENZONATATE 100 MG CAP PO PRN (22:24)
[2021-02-25] MEDS ORDERED: BENZONATATE 100 MG CAP PO ONE (22:38)
[2021-02-25] MEDS ORDERED: MELATONIN 5 MG TABLET PO ONE (22:38)
[2021-02-26] MEDS: METHYLPREDNISOLONE 125 MG INJ IV SCH ×3 (01:00→17:00)
[2021-02-26 03:04] LABS: Absolute Lymphocytes (CBC) 0.2 K/uL (0.7-4.9); Basophils % 0.1 % (0-1.3); Hematocrit 47.9 % (39.6-49.0); Lymphocytes % 1.9 % (15.3-44.8); MPV 8.1 fL (7.6-11.3); RBC Red Blood Cell Count 5.43 M/uL (4.33-5.43)
[2021-02-26 03:26] LABS: Albumin 2.7 g/dL (3.4-5.0); Bilirubin Total 0.9 mg/dL (0.2-1.0); C-Reactive Protein 23.7 mg/L (<3.00); Ferritin 1129.2 ng/mL (26-388); Magnesium 2.7 mg/dL (1.8-2.4); Potassium 4.6 mmol/L (3.5-5.1); Protein, Total 6.6 g/dL (6.4-8.2)
--- NOTE | 2021-02-26 06:17 | P.PN ---
Subjective Date of Service: 02/26/21 Primary Care Provider: Dr. Gagnon Chief Complaint: COVID-19 pneumonia Subjective: Worsening (more short of breath today, on HFNC, no new complaints) Review of Systems 10-point ROS is otherwise unremarkable Physical Examination - Vital Signs Temperature: 97.9 F Blood Pressure: 136/69 Pulse: 90 Respirations: 23 Pulse Ox (%): 87 Assessment & Plan Physician Review Additional Text: Physical exam GEN: Alert, oriented, NAD HEENT: Normal conjunctiva, sclera anicteric CV: Regular rate and rhythm, no edema Pulm: mild-mod labored respirations on high flow nasal cannula ABD: Soft, nontender, nondistended Neuro: Normal speech, normal affect Problem list Acute hypoxemic respiratory failure secondary to COVID-19 pneumonia Continue treatment per Covid protocol, IV steroids, vitamin supplementation, oxygen supplementation Pulmonology consulted Wean oxygen as tolerated Significantly elevated inflammatory markers, with some improvement today On high flow nasal cannula now, pharmacy consulted for baricitinib Patient otherwise denies other symptoms at this time Continue aspirin and Lovenox Oxygenation improves with proning Dispo: Anticipate discharge home with home oxygen in 4-5 days Time Spent Managing Pts Care (In Minutes): 40
[2021-02-26] MEDS ORDERED: THIAMINE HCL 100 MG TABLET ONE (08:57)
[2021-02-26] MEDS ORDERED: ZINC SULFATE 220 MG CAP ONE (08:57)
[2021-02-26] MEDS ORDERED: ASCORBIC ACID 500 MG TABLET ONE ×4 (08:57→19:47)
[2021-02-26] MEDS ORDERED: VITAMIN D 1000 UNIT TAB ONE (08:58)
[2021-02-26] MEDS ORDERED: METHYLPREDNISOLONE 40 MG INJ ONE ×2 (08:58→19:48)
[2021-02-26] MEDS ORDERED: ENOXAPARIN 40 MG/0.4 ML SQ ONE (08:59)
[2021-02-26] MEDS ORDERED: ASPIRIN EC 81 MG TAB PO ONE (08:59)
[2021-02-26] MEDS: ZINC SULFATE 220 MG CAP PO SCH (09:00)
[2021-02-26] MEDS: VITAMIN D 1000 UNIT TAB PO SCH (09:00)
[2021-02-26] MEDS: BARICITINIB 2 MG TABLET PO SCH (09:00)
[2021-02-26] MEDS: THIAMINE HCL 100 MG TABLET PO SCH (09:00)
[2021-02-26] MEDS: ENOXAPARIN 40 MG/0.4 ML SQ SCH (09:00)
[2021-02-26] MEDS: ASPIRIN EC 81 MG TAB PO SCH (09:00)
[2021-02-26] MEDS: ASCORBIC ACID 500 MG TABLET PO SCH ×4 (09:00→21:00)
[2021-02-26] MEDS ORDERED: METHYLPREDNISOLONE 125 MG INJ ONE (17:38)
[2021-02-26] MEDS ORDERED: NA CHLORIDE 0.9% 250 ML IV ONE (21:42)
[2021-02-26] MEDS ORDERED: NA CHLORIDE 0.9% 250 ML ONE (22:10)
[2021-02-26] MEDS: BENZONATATE 100 MG CAP PO PRN (22:44)
[2021-02-26] MEDS ORDERED: BENZONATATE 100 MG CAP PO ONE (23:04)
[2021-02-27] MEDS ORDERED: LORazepam 2 MG/ML VIAL IV ONE ×2 (00:55→04:04)
[2021-02-27] MEDS: METHYLPREDNISOLONE 125 MG INJ IV SCH ×3 (01:00→17:00)
[2021-02-27] MEDS ORDERED: LORazepam 2 MG/ML VIAL ONE ×2 (01:01→04:24)
[2021-02-27 05:12] LABS: Absolute Lymphocytes (CBC) 0.2 K/uL (0.7-4.9); Basophils % 0.2 % (0-1.3); Hematocrit 45.5 % (39.6-49.0); Lymphocytes % 1.4 % (15.3-44.8); RBC Red Blood Cell Count 5.16 M/uL (4.33-5.43)
[2021-02-27 05:27] LABS: C-Reactive Protein 29.8 mg/L (<3.00); Potassium 4.5 mmol/L (3.5-5.1)
[2021-02-27] MEDS: BENZONATATE 100 MG CAP PO PRN (07:18)
[2021-02-27] MEDS ORDERED: BENZONATATE 100 MG CAP PO ONE (07:40)
--- NOTE | 2021-02-27 07:40 | RAD REPORT ---
EXAM DESCRIPTION: Pedro Single View02/27/2021 6:26 am CLINICAL HISTORY: Worsening hypoxia COMPARISON: February 22, 2021 FINDINGS: Worsening in [id number] bilateral pulmonary opacities. Heart is upper limits normal size IMPRESSION: Worsening in [id number] bilateral pulmonary opacities likely pneumonia
[2021-02-27] MEDS ORDERED: ASCORBIC ACID 500 MG TABLET ONE (08:12)
[2021-02-27] MEDS ORDERED: ASPIRIN EC 81 MG TAB PO ONE (08:12)
[2021-02-27] MEDS ORDERED: METHYLPREDNISOLONE 125 MG INJ ONE ×2 (08:12→17:27)
[2021-02-27] MEDS ORDERED: THIAMINE HCL 100 MG TABLET ONE (08:12)
[2021-02-27] MEDS ORDERED: ENOXAPARIN 40 MG/0.4 ML SQ ONE (08:13)
[2021-02-27] MEDS ORDERED: VITAMIN D 1000 UNIT TAB ONE (08:13)
[2021-02-27] MEDS ORDERED: ZINC SULFATE 220 MG CAP ONE (08:13)
[2021-02-27] MEDS: ZINC SULFATE 220 MG CAP PO SCH (09:00)
[2021-02-27] MEDS: ASCORBIC ACID 500 MG TABLET PO SCH ×4 (09:00→20:20)
[2021-02-27] MEDS: ASPIRIN EC 81 MG TAB PO SCH (09:00)
[2021-02-27] MEDS: BARICITINIB 2 MG TABLET PO SCH (09:00)
[2021-02-27] MEDS: THIAMINE HCL 100 MG TABLET PO SCH (09:00)
[2021-02-27] MEDS: ENOXAPARIN 40 MG/0.4 ML SQ SCH (09:00)
[2021-02-27] MEDS: VITAMIN D 1000 UNIT TAB PO SCH (09:00)
[2021-02-27] MEDS: LORazepam 2 MG/ML VIAL IV PRN ×2 (09:20→21:28)
--- NOTE | 2021-02-27 12:15 | P.PN ---
Subjective Date of Service: 02/27/21 Primary Care Provider: Dr. Gagnon Chief Complaint: COVID-19 pneumonia Patient continues to remain very hypoxic still on high concentrations of oxygen Review of Systems General: Weakness Respiratory: Shortness of Breath Physical Examination - Vital Signs Temperature: 99.4 F Blood Pressure: 155/100 Pulse: 62 Respirations: 30 Pulse Ox (%): 93 - Physical Exam General: Alert, Oriented x3, Cooperative Assessment & Plan - Problems (Diagnosis) (1) Pneumonia due to COVID-19 virus Current Visit: Yes Status: Acute Plan: Respiratory failure fully anticoagulated oxygenation seems to be improving next x-ray no change Physician Review: Patient Assessed, Agree with Above Assessment and Plan
--- NOTE | 2021-02-27 14:21 | P.PN ---
Subjective Date of Service: 02/27/21 Primary Care Provider: Dr. Gagnon Chief Complaint: COVID-19 pneumonia Patient noted to be restless and anxious. He is maintained on high-flow oxygen. Physical Examination - Vital Signs Temperature: 99.4 F Blood Pressure: 155/100 Pulse: 62 Respirations: 30 Pulse Ox (%): 93 - Physical Exam General: In no apparent distress HEENT: Other (High-flow oxygen) Neck: JVD not distended Respiratory: Other (Nonlabored breathing) Cardiovascular: Regular rate/rhythm, Normal S1 S2 Gastrointestinal: Soft and benign, Non-distended Musculoskeletal: No swelling Integumentary: No rashes Neurological: Normal strength at 5/5 x4 extr Assessment And Plan Physician Review: Patient Assessed, Agree with Above Assessment and Plan Physician Review Additional Text: Problem list Acute hypoxemic respiratory failure secondary to COVID-19 pneumonia Anxiety state Continue treatment per Covid protocol, IV steroids, vitamin supplementation, oxygen supplementation Pulmonology is following Wean oxygen as tolerated Continue to monitor inflammatory markers. Patient started on Baracitinib Diazepam p.r.n. for anxiety Continue aspirin and Lovenox Assume prone position as tolerated.
[2021-02-27] MEDS: DIAZEPAM 5 MG TABLET PO PRN ×2 (14:32→20:20)
[2021-02-27] MEDS ORDERED: DIAZEPAM 5 MG TABLET ONE (14:52)
[2021-02-27] MEDS: RIVAROXABAN 20 MG TABLET PO SCH (17:00)
[2021-02-27] MEDS ORDERED: RIVAROXABAN 20 MG TABLET PO ONE (17:27)
[2021-02-27] MEDS: MELATONIN 5 MG TABLET PO PRN (20:26)
[2021-02-28] MEDS: METHYLPREDNISOLONE 125 MG INJ IV SCH ×3 (00:08→16:49)
[2021-02-28] MEDS: LORazepam 2 MG/ML VIAL IV PRN ×2 (03:13→21:56)
[2021-02-28 03:57] LABS: Absolute Lymphocytes (CBC) 0.2 K/uL (0.7-4.9); Hematocrit 45.5 % (39.6-49.0); Lymphocytes % 1.5 % (15.3-44.8); MPV 8.2 fL (7.6-11.3); RBC Red Blood Cell Count 5.17 M/uL (4.33-5.43)
[2021-02-28 04:12] LABS: Potassium 4.8 mmol/L (3.5-5.1)
[2021-02-28 05:10] LABS: Blood Morphology Comment NOT SEEN (NOT SEEN); Platelet Estimate ADEQ
[2021-02-28] MEDS: VITAMIN D 1000 UNIT TAB PO SCH (08:07)
[2021-02-28] MEDS: ZINC SULFATE 220 MG CAP PO SCH (08:07)
[2021-02-28] MEDS: ASCORBIC ACID 500 MG TABLET PO SCH ×4 (08:07→20:12)
[2021-02-28] MEDS: THIAMINE HCL 100 MG TABLET PO SCH (08:07)
[2021-02-28] MEDS: ASPIRIN EC 81 MG TAB PO SCH (08:07)
[2021-02-28] MEDS: BARICITINIB 2 MG TABLET PO SCH (08:36)
--- NOTE | 2021-02-28 14:14 | P.PN ---
Subjective Date of Service: 02/28/21 Primary Care Provider: Dr. Gagnon Chief Complaint: COVID-19 pneumonia No new complaint today He is maintained on high-flow oxygen. Physical Examination - Vital Signs Temperature: 99.3 F Blood Pressure: 132/63 Pulse: 68 Respirations: 30 Pulse Ox (%): 95 - Physical Exam General: Alert, In no apparent distress Neck: JVD not distended Respiratory: Other (Nonlabored breathing) Cardiovascular: Regular rate/rhythm, Normal S1 S2 Gastrointestinal: Soft and benign, Non-distended Musculoskeletal: No swelling Integumentary: No rashes Neurological: Normal strength at 5/5 x4 extr Assessment And Plan Physician Review: Patient Assessed, Agree with Above Assessment and Plan Physician Review Additional Text: Problem list Acute hypoxemic respiratory failure secondary to COVID-19 pneumonia Anxiety state Continue treatment per Covid protocol, IV steroids, vitamin supplementation, oxygen supplementation Pulmonology is following Wean oxygen as tolerated Continue to monitor inflammatory markers. Continue Baracitinib Diazepam p.r.n. for anxiety Continue aspirin and Lovenox Assume prone position as tolerated.
[2021-02-28] MEDS: GUAIFENESIN/DM 5 ML UCUP PO PRN (14:27)
[2021-02-28] MEDS: RIVAROXABAN 20 MG TABLET PO SCH (16:49)
[2021-02-28] MEDS: DIAZEPAM 5 MG TABLET PO PRN (20:12)
[2021-02-28] MEDS: MELATONIN 5 MG TABLET PO PRN (20:12)
[2021-02-28] MEDS: BENZONATATE 100 MG CAP PO PRN (20:12)
[2021-03-01 01:25] LABS: Arterial Blood Carboxyhemoglob 0.4 % (0-1.5); Blood Gas Oxyhemoglobin 91.4 % (94-97); Blood O2 Saturation 92.9 % (92-98.5)
[2021-03-01] MEDS: METHYLPREDNISOLONE 125 MG INJ IV SCH (01:39)
[2021-03-01] MEDS: VITAMIN D 1000 UNIT TAB PO SCH (07:26)
[2021-03-01] MEDS: ZINC SULFATE 220 MG CAP PO SCH (07:27)
[2021-03-01] MEDS: THIAMINE HCL 100 MG TABLET PO SCH (07:27)
[2021-03-01] MEDS: ASCORBIC ACID 500 MG TABLET PO SCH ×4 (07:27→19:30)
[2021-03-01] MEDS: ASPIRIN EC 81 MG TAB PO SCH (07:28)
[2021-03-01] MEDS: BARICITINIB 2 MG TABLET PO SCH (08:42)
--- NOTE | 2021-03-01 13:11 | P.PN ---
Subjective Date of Service: 03/01/21 Primary Care Provider: Dr. Gagnon Chief Complaint: COVID-19 pneumonia No new complaint today He is maintained on 100% non-rebreather. Physical Examination - Vital Signs Temperature: 97.9 F Blood Pressure: 133/78 Pulse: 80 Respirations: 28 Pulse Ox (%): 93 - Physical Exam General: Alert, In no apparent distress Respiratory: Other (Nonlabored breathing) Cardiovascular: Regular rate/rhythm, Normal S1 S2 Gastrointestinal: Soft and benign, Non-distended Musculoskeletal: No swelling Integumentary: No rashes Neurological: Normal strength at 5/5 x4 extr Assessment And Plan Physician Review: Patient Assessed, Agree with Above Assessment and Plan Physician Review Additional Text: Physical exam GEN: Alert, oriented, NAD.. HEENT: Normal conjunctiva, sclera anicteric CV: Regular rate and rhythm, no edema Pulm: Nonlabored breathing on 100% non-rebreather ABD: Soft, nontender, nondistended Neuro: Normal speech, normal affect Problem list Acute hypoxemic respiratory failure secondary to COVID-19 pneumonia Anxiety state Continue treatment per Covid protocol, IV steroids, vitamin supplementation, oxygen supplementation Pulmonology is following Wean oxygen as tolerated Continue to monitor inflammatory markers. Continue Baracitinib Diazepam p.r.n. for anxiety Continue aspirin and Lovenox Assume prone position as tolerated.
[2021-03-01] MEDS: RIVAROXABAN 20 MG TABLET PO SCH (16:22)
[2021-03-01] MEDS: GUAIFENESIN/DM 5 ML UCUP PO PRN (19:31)
[2021-03-01] MEDS: DIAZEPAM 5 MG TABLET PO PRN (23:49)
[2021-03-02 06:18] LABS: Absolute Lymphocytes (CBC) 0.3 K/uL (0.7-4.9); Basophils % 0.1 % (0-1.3); Hematocrit 46.4 % (39.6-49.0); Lymphocytes % 1.8 % (15.3-44.8); MPV 8.2 fL (7.6-11.3); RBC Red Blood Cell Count 5.28 M/uL (4.33-5.43)
[2021-03-02 06:31] LABS: Albumin 2.4 g/dL (3.4-5.0); Potassium 4.9 mmol/L (3.5-5.1)
[2021-03-02 06:34] LABS: Bilirubin Total 1.8 mg/dL (0.2-1.0); Protein, Total 6.5 g/dL (6.4-8.2)
[2021-03-02] MEDS: ASPIRIN EC 81 MG TAB PO SCH (09:53)
[2021-03-02] MEDS: VITAMIN D 1000 UNIT TAB PO SCH (09:53)
[2021-03-02] MEDS: BARICITINIB 2 MG TABLET PO SCH (09:53)
[2021-03-02] MEDS: ZINC SULFATE 220 MG CAP PO SCH (09:53)
[2021-03-02] MEDS: ASCORBIC ACID 500 MG TABLET PO SCH ×4 (09:53→20:20)
[2021-03-02] MEDS: THIAMINE HCL 100 MG TABLET PO SCH (09:54)
--- NOTE | 2021-03-02 15:19 | P.PN ---
Subjective Date of Service: 03/02/21 Primary Care Provider: Dr. Gagnon Chief Complaint: COVID-19 pneumonia No new complaint. He is maintained on 100% non-rebreather and high-flow oxygen. Physical Examination - Vital Signs Temperature: 98.4 F Blood Pressure: 109/71 Pulse: 93 Respirations: 20 Pulse Ox (%): 89 Assessment And Plan Physician Review: Patient Assessed, Agree with Above Assessment and Plan Physician Review Additional Text: Physical exam GEN: Alert, oriented, NAD. HEENT: Normal conjunctiva, sclera anicteric CV: Regular rate and rhythm, no edema Pulm: Nonlabored breathing on 100% non-rebreather and high-flow oxygen ABD: Soft, nontender, nondistended Neuro: Normal speech, normal affect Problem list Acute hypoxemic respiratory failure secondary to COVID-19 pneumonia Anxiety state Patient oxygen requirement continue to increase Continue treatment per Covid protocol, IV steroids, vitamin supplementation, oxygen supplementation Pulmonology is following Wean oxygen as tolerated Continue to monitor inflammatory markers. Continue Baracitinib Diazepam p.r.n. for anxiety Continue aspirin and Lovenox Assume prone position as tolerated.
--- NOTE | 2021-03-02 15:52 | P.PN ---
Subjective Date of Service: 03/02/21 Primary Care Provider: Dr. Gagnon Chief Complaint: COVID-19 pneumonia Continues to remain hypoxic not doing well he is on high flow and CPAP Review of Systems General: Weakness Respiratory: Shortness of Breath Physical Examination - Vital Signs Temperature: 98.4 F Blood Pressure: 109/71 Pulse: 93 Respirations: 20 Pulse Ox (%): 89 - Physical Exam General: Alert, Oriented x3, Cooperative Assessment & Plan - Problems (Diagnosis) (1) Pneumonia due to COVID-19 virus Current Visit: Yes Status: Acute Plan: Respiratory failure no change still requiring high concentrations of oxygen steroids were discontinued as the ordered time.I have resumed Solu-Medrol repeat chest x-ray ordered patient is on multivitamins repeat chest x-ray ordered DC Valium changed to Ativan low-dose Physician Review: Patient Assessed, Agree with Above Assessment and Plan
[2021-03-02] MEDS: RIVAROXABAN 20 MG TABLET PO SCH (17:27)
[2021-03-02] MEDS: METHYLPREDNISOLONE 40 MG INJ IV SCH (17:27)
[2021-03-02] MEDS: LORAZEPAM 1 MG TABLET PO PRN (20:20)
[2021-03-02] MEDS: ENSURE HIGH PROTEIN 237 ML CAN PO SCH (20:20)
[2021-03-03] MEDS: METHYLPREDNISOLONE 40 MG INJ IV SCH ×3 (00:15→16:34)
[2021-03-03] MEDS: ZINC SULFATE 220 MG CAP PO SCH (08:09)
[2021-03-03] MEDS: THIAMINE HCL 100 MG TABLET PO SCH (08:09)
[2021-03-03] MEDS: ASPIRIN EC 81 MG TAB PO SCH (08:09)
[2021-03-03] MEDS: ASCORBIC ACID 500 MG TABLET PO SCH ×4 (08:09→21:22)
[2021-03-03] MEDS: VITAMIN D 1000 UNIT TAB PO SCH (08:09)
[2021-03-03] MEDS: ENSURE HIGH PROTEIN 237 ML CAN PO SCH ×2 (08:10→21:00)
[2021-03-03] MEDS: BARICITINIB 2 MG TABLET PO SCH (08:36)
[2021-03-03 09:51] LABS: Absolute Lymphocytes (CBC) 0.2 K/uL (0.7-4.9); Basophils % 0.4 % (0-1.3); Lymphocytes % 0.8 % (15.3-44.8); MPV 8.5 fL (7.6-11.3); RBC Red Blood Cell Count 5.18 M/uL (4.33-5.43)
[2021-03-03 10:17] LABS: ALT/SGPT 87 U/L (12-78); AST/SGOT 58 U/L (15-37); Albumin 2.4 g/dL (3.4-5.0); Alkaline Phosphatase 63 U/L (45-117); BUN Blood Urea Nitrogen 25 mg/dL (7-18); Bicarbonate 24 mmol/L (21-32); Bilirubin Total 1.4 mg/dL (0.2-1.0); Glucose Level 125 mg/dL (74-106); Potassium 5.1 mmol/L (3.5-5.1); Sodium Level 131 mmol/L (136-145)
--- NOTE | 2021-03-03 10:38 | RAD REPORT ---
EXAM DESCRIPTION: RAD - Chest Single View - 03/03/2021 8:50 am CLINICAL HISTORY: resp failure Chest pain. COMPARISON: Chest Single View dated 02/27/2021; Chest Pa And Lat (2 Views) dated 02/22/2021 FINDINGS: Portable technique limits examination quality. Severe bilateral pulmonary opacity shows no significant change since 02/27/2021. The heart is normal in size. No displaced fractures. IMPRESSION: Severe bilateral pulmonary opacities are stable since 02/27/2021.
[2021-03-03 12:06] LABS: Blood Morphology Comment NOT SEEN (NOT SEEN); Platelet Estimate ADEQ
[2021-03-03] MEDS ORDERED: MORPHINE 2 MG/ML SYR IV ONE (13:00)
--- NOTE | 2021-03-03 13:04 | P.PN ---
Subjective Date of Service: 03/03/21 Primary Care Provider: Dr. Gagnon Chief Complaint: COVID-19 pneumonia Patient came quite dyspneic. SaO2 down to the 70s. He did not tolerate BiPAP. Patient placed on 100% non-rebreather mask. He was very tachypneic and tachycardic. Very anxious. Patient given a dose of IV morphine which calmed him down. SaO2 up to the low to mid 80s. Patient still anxious. He declines intubation at this time and wants to avoid it as much as possible. Physical Examination - Vital Signs Temperature: 97.5 F Blood Pressure: 121/84 Pulse: 93 Respirations: 30 Pulse Ox (%): 81 - Physical Exam General: Alert, In no apparent distress, Oriented x3 HEENT: Other (100% non-rebreather mask.) Neck: JVD not distended Respiratory: Other (Tachypneic) Cardiovascular: Normal pulses, Regular rate/rhythm, Normal S1 S2 Gastrointestinal: Soft and benign, Non-distended Musculoskeletal: No swelling Integumentary: No rashes Neurological: Other (No focal motor deficit) Assessment And Plan Physician Review: Patient Assessed, Agree with Above Assessment and Plan Physician Review Additional Text: Problem list Acute hypoxemic respiratory failure secondary to COVID-19 pneumonia Anxiety state Patient oxygen requirement continue to increase. Severe bilateral pneumonia, unchanged on the x-ray. Continue treatment per Covid protocol, IV steroids, vitamin supplementation, oxygen supplementation. Pulmonology is following Wean oxygen as tolerated Continue to monitor inflammatory markers. Continue Baracitinib Diazepam p.r.n. for anxiety Morphine p.r.n. for anxiety and shortness of breath Continue aspirin and Lovenox. BiPAP as needed. Transferred to the ICU. Assume prone position as tolerated.
[2021-03-03] MEDS: ACETAMINOPHEN 500 MG TAB PO PRN (14:26)
--- NOTE | 2021-03-03 15:04 | RAD REPORT ---
EXAM DESCRIPTION: RAD - Chest Single View - 03/03/2021 2:40 pm CLINICAL HISTORY: r/o pneumothorax/covid pneumonia Chest pain. COMPARISON: Chest Single View dated 03/03/2021; Chest Single View dated 02/27/2021; Chest Pa And Lat ( 2 Views) dated 02/22/2021 FINDINGS: Portable technique limits examination quality. Severe bilateral pulmonary opacities are again seen, little changed since earlier study same date. No pneumothorax is visualized. The heart is normal in size. No displaced fractures.
[2021-03-03] MEDS: MORPHINE 4 MG/ML SYR IV PRN ×3 (16:05→23:52)
[2021-03-03] MEDS: RIVAROXABAN 20 MG TABLET PO SCH (16:33)
[2021-03-03] MEDS ORDERED: VANCOMYCIN/NS 1 gm 1 GM/250 ML BAG IVPB ONE ×2 (18:00→21:00)
[2021-03-03] MEDS ORDERED: VANCOMYCIN 1.5 GM in NA CHLORIDE 0.9% 500 ML IVPB SCH (21:00)
[2021-03-03] MEDS ORDERED: VANCOMYCIN 1.5 GM in NA CHLORIDE 0.9% 500 ML IVPB ONE (21:00)
[2021-03-03] MEDS ORDERED: CEFEPIME 1 GM/VIAL IV SCH (21:00)
[2021-03-03] MEDS ORDERED: VANCOMYCIN 1 GM/VIAL ONE (21:09)
[2021-03-03] MEDS ORDERED: NA CHLORIDE 0.9% 500 ML ONE (21:09)
[2021-03-03] MEDS: CEFEPIME/SWI 1gm 10 ML IV SCH (21:20)
[2021-03-03] MEDS: LORAZEPAM 1 MG TABLET PO PRN (22:42)
[2021-03-03] MEDS: MELATONIN 5 MG TABLET PO PRN (23:51)
[2021-03-03] MEDS: ONDANSETRON 4 MG/2 ML VIAL IV PRN (23:52)
[2021-03-03] MEDS: BENZONATATE 100 MG CAP PO PRN (23:52)
[2021-03-04] MEDS: METHYLPREDNISOLONE 40 MG INJ IV SCH ×3 (01:00→16:04)
[2021-03-04] MEDS: MORPHINE 4 MG/ML SYR IV PRN ×5 (03:56→23:16)
[2021-03-04 05:38] LABS: Absolute Lymphocytes (CBC) 0.2 K/uL (0.7-4.9); Basophils % 0.2 % (0-1.3); Hematocrit 46.5 % (39.6-49.0); Lymphocytes % 0.9 % (15.3-44.8); RBC Red Blood Cell Count 5.24 M/uL (4.33-5.43)
[2021-03-04 05:42] LABS: BUN Blood Urea Nitrogen 28 mg/dL (7-18); Bicarbonate 26 mmol/L (21-32); Glucose Level 126 mg/dL (74-106); Potassium 5.3 mmol/L (3.5-5.1); Sodium Level 135 mmol/L (136-145)
[2021-03-04] MEDS: ASPIRIN EC 81 MG TAB PO SCH (08:11)
[2021-03-04] MEDS: VITAMIN D 1000 UNIT TAB PO SCH (08:11)
[2021-03-04] MEDS: CEFEPIME/SWI 1gm 10 ML IV SCH ×2 (08:11→21:24)
[2021-03-04] MEDS: ASCORBIC ACID 500 MG TABLET PO SCH ×4 (08:11→21:24)
[2021-03-04] MEDS: THIAMINE HCL 100 MG TABLET PO SCH (08:11)
[2021-03-04] MEDS: ZINC SULFATE 220 MG CAP PO SCH (08:12)
[2021-03-04] MEDS: GUAIFENESIN/DM 5 ML UCUP PO PRN (08:12)
[2021-03-04] MEDS: LORAZEPAM 1 MG TABLET PO PRN ×2 (08:12→19:51)
[2021-03-04] MEDS: ENSURE HIGH PROTEIN 237 ML CAN PO SCH ×3 (08:17→21:00)
[2021-03-04 08:50] LABS: Blood Morphology Comment NOT SEEN (NOT SEEN); Platelet Estimate ADEQ
[2021-03-04] MEDS: VANCOMYCIN 2 GM in NA CHLORIDE 0.9% 500 ML IVPB SCH ×2 (10:08→21:00)
[2021-03-04] MEDS ORDERED: FUROSEMIDE 20 MG/ 2ML VIAL IV ONE (10:20)
--- NOTE | 2021-03-04 10:22 | P.PN ---
Subjective Date of Service: 03/04/21 Primary Care Provider: Dr. Gagnon Chief Complaint: Respiratory failure Patient not doing well transfer to the ICU he is requiring high concentrations of oxygen very anxious Review of Systems is unable to be obtained Physical Examination - Vital Signs Temperature: 98.3 F Blood Pressure: 125/81 Pulse: 101 Respirations: 31 Pulse Ox (%): 92 - Physical Exam General: Moderate distress, Delirious Assessment & Plan - Problems (Diagnosis) (1) Pneumonia due to COVID-19 virus Current Visit: Yes Status: Acute Plan: Respiratory failure condition worsening white count elevated patient has diffuse bilateral pneumonia patient is not eating and drinking probably can end up on a ventilator patient is taking his pills he is on Barcitinib and high doses of steroids Michel another chest x-ray arterial blood gases Physician Review: Patient Assessed, Agree with Above Assessment and Plan
--- NOTE | 2021-03-04 10:47 | RAD REPORT ---
EXAM DESCRIPTION: Pedro Single View03/04/2021 10:37 am CLINICAL HISTORY: Respiratory failure COMPARISON: March 03, 2001 FINDINGS: No significant change extensive bilateral pulmonary opacities. Heart is mildly enlarged IMPRESSION: No significant change in extensive bilateral pulmonary opacities probably pneumonia
[2021-03-04] MEDS: BARICITINIB 2 MG TABLET PO SCH (11:03)
--- NOTE | 2021-03-04 11:15 | P.PN ---
Subjective Date of Service: 03/04/21 Primary Care Provider: Dr. Gagnon Chief Complaint: Respiratory failure Patient now requiring high-flow oxygen with 100% FiO2 plus 100% non-rebreather. He has not tolerate BiPAP. Spouse stated patient has claustrophobia. Physical Examination - Vital Signs Temperature: 98.3 F Blood Pressure: 125/81 Pulse: 101 Respirations: 35 Pulse Ox (%): 91 - Physical Exam General: Alert, Mild distress Neck: JVD not distended Respiratory: Other (Mildly labored breathing) Cardiovascular: Normal S1 S2 (Tachycardia) Gastrointestinal: Soft and benign, Non-distended Musculoskeletal: No swelling Integumentary: No rashes Neurological: Other (No focal motor deficit) Assessment And Plan Physician Review: Patient Assessed, Agree with Above Assessment and Plan Physician Review Additional Text: Problem list Acute hypoxemic respiratory failure secondary to COVID-19 pneumonia Anxiety state Continue treatment per Covid protocol, IV steroids, vitamin supplementation, oxygen supplementation. Pulmonology is following Continue to monitor inflammatory markers. Continue Baracitinib Diazepam p.r.n. for anxiety Morphine p.r.n. for anxiety and shortness of breath Continue aspirin and Lovenox. BiPAP if patient would tolerate. Continue monitoring in the ICU. Assume prone position as tolerated.
[2021-03-04 12:33] LABS: Arterial Blood Carboxyhemoglob 0.7 % (0-1.5); Blood Gas Oxyhemoglobin 89.2 % (94-97); Blood O2 Saturation 90.8 % (92-98.5)
[2021-03-04] MEDS: HALOPERIDOL LACT 5 MG/ML INJ IV PRN ×2 (14:32→19:51)
[2021-03-04] MEDS: RIVAROXABAN 20 MG TABLET PO SCH (16:04)
[2021-03-05] MEDS: HALOPERIDOL LACT 5 MG/ML INJ IV PRN ×2 (01:55→06:45)
[2021-03-05] MEDS: METHYLPREDNISOLONE 40 MG INJ IV SCH ×3 (01:55→16:47)
[2021-03-05] MEDS: MORPHINE 4 MG/ML SYR IV PRN ×2 (04:43→08:58)
[2021-03-05 05:07] LABS: Absolute Lymphocytes (CBC) 0.2 K/uL (0.7-4.9); Basophils % 0.5 % (0-1.3); Hematocrit 43.3 % (39.6-49.0); MPV 9.4 fL (7.6-11.3); RBC Red Blood Cell Count 4.89 M/uL (4.33-5.43)
[2021-03-05 05:32] LABS: BUN Blood Urea Nitrogen 31 mg/dL (7-18); Bicarbonate 25 mmol/L (21-32); Glucose Level 143 mg/dL (74-106); Potassium 5.2 mmol/L (3.5-5.1); Sodium Level 134 mmol/L (136-145)
[2021-03-05] MEDS: LORAZEPAM 1 MG TABLET PO PRN (06:45)
--- NOTE | 2021-03-05 07:25 | RAD REPORT ---
EXAM DESCRIPTION: RAD - Chest Single View - 03/05/2021 5:52 am CLINICAL HISTORY: Respiratory failure, COVID positive COMPARISON: March 04March 03 TECHNIQUE: AP portable chest image was obtained 03/05/2021 5:52 am . FINDINGS: Low lung volume exam shows extensive bilateral airspace opacification. Shallow inspiration accentuates the lung parenchymal disease. No true improvement or resolution identifiable. Trachea remains in the midline. Heart and vasculature are normal. No measurable pleural effusion and no pneumothorax. No acute bony abnormality seen. No acute aortic findings suspected. IMPRESSION: Bilateral COVID-19 pneumonia, moderate in severity by imaging, not substantially differe nt from prior day imaging.
[2021-03-05] MEDS: THIAMINE HCL 100 MG TABLET PO SCH (08:53)
[2021-03-05] MEDS: ASPIRIN EC 81 MG TAB PO SCH (08:53)
[2021-03-05] MEDS: ENSURE HIGH PROTEIN 237 ML CAN PO SCH (08:53)
[2021-03-05] MEDS: VITAMIN D 1000 UNIT TAB PO SCH (08:53)
[2021-03-05] MEDS: ASCORBIC ACID 500 MG TABLET PO SCH ×4 (08:53→21:10)
[2021-03-05] MEDS: FLUCONAZOLE 100 MG TAB PO SCH (08:53)
[2021-03-05] MEDS: ZINC SULFATE 220 MG CAP PO SCH (08:54)
[2021-03-05] MEDS: CEFEPIME/SWI 1gm 10 ML IV SCH ×2 (08:54→21:10)
[2021-03-05] MEDS: BARICITINIB 2 MG TABLET PO SCH (08:55)
[2021-03-05] MEDS: VANCOMYCIN 2 GM in NA CHLORIDE 0.9% 500 ML IVPB SCH (08:59)
--- NOTE | 2021-03-05 11:57 | P.PN ---
Subjective Date of Service: 03/05/21 Primary Care Provider: Dr. Gagnon Chief Complaint: Respiratory failure Patient is not doing well he is very agitated claustrophobic unable to use BiPAP significant desaturation very tachypneic delirious Review of Systems is unable to be obtained Physical Examination - Vital Signs Temperature: 98.0 F Blood Pressure: 119/75 Pulse: 94 Respirations: 24 Pulse Ox (%): 95 - Physical Exam General: Severe distress, Delirious Assessment & Plan - Problems (Diagnosis) (1) Pneumonia due to COVID-19 virus Current Visit: Yes Status: Acute Plan: Respiratory failure condition worse discussed with and plan to intubate him tube feeds labs reviewed white count mildly elevated blood pressure stable labs reviewed vent orders initiated possible transfer to a tertiary care facility for ECMO Physician Review: Patient Assessed, Agree with Above Assessment and Plan
[2021-03-05] MEDS ORDERED: HALOPERIDOL LACT 5 MG/ML INJ IV PRN (11:58)
[2021-03-05] MEDS ORDERED: MIDAZOLAM HCL 2 MG/2 ML INJ IV PRN (11:58)
[2021-03-05] MEDS ORDERED: NA CHLORIDE 0.9% 250 ML IV PRN (11:58)
[2021-03-05] MEDS ORDERED: CISATRACURIUM BESYLATE 40 MG in NA CHLORIDE 0.9% 80 ML IV PRN (12:00)
[2021-03-05] MEDS ORDERED: RSI MEDICATION KIT IV ONE (12:07)
[2021-03-05] MEDS ORDERED: propofoL 1,000 MG/100 ML VIAL IV ONE (12:09)
[2021-03-05] MEDS ORDERED: NA CHLORIDE 0.9% 1,000 ML ONE (12:10)
[2021-03-05] MEDS ORDERED: SUCCINYLCHOLINE 20 MG/ML (10 ML) IV ONE (12:18)
--- NOTE | 2021-03-05 12:24 | P.PN ---
Subjective Date of Service: 03/05/21 Primary Care Provider: Dr. Gagnon Chief Complaint: Respiratory failure Patient with labored breathing on 100% non-rebreather and 100% high-flow oxygen. Patient subsequently intubated and put on mechanical ventilation. Physical Examination - Vital Signs Temperature: 98.0 F Blood Pressure: 119/75 Pulse: 94 Respirations: 24 Pulse Ox (%): 95 - Physical Exam General: Unresponsive, Other (Intubated) HEENT: Other (ETT) Neck: JVD not distended Respiratory: Crackles/rales (Bilateral) Cardiovascular: No edema, Regular rate/rhythm, Normal S1 S2 Gastrointestinal: Normal bowel sounds, Soft and benign, Non-distended Musculoskeletal: No swelling Integumentary: No rashes Neurological: Normal strength at 5/5 x4 extr Assessment And Plan Physician Review: Patient Assessed, Agree with Above Assessment and Plan Physician Review Additional Text: Problem list Acute hypoxemic respiratory failure secondary to COVID-19 pneumonia Anxiety state Patient intubated and started on mechanical ventilation. Continue treatment per Covid protocol, IV steroids, vitamin supplementation. Pulmonology is following Continue to monitor inflammatory markers. Continue Baracitinib Diazepam p.r.n. for anxiety Continue aspirin and Lovenox. Continue monitoring in the ICU. NG tube for feeding.
[2021-03-05] MEDS: CISATRACURIUM 40 MG in NS 100 ML IV PRN (12:42)
--- NOTE | 2021-03-05 13:23 | RAD REPORT ---
EXAM DESCRIPTION: Pedro Single View03/05/2021 1:04 pm CLINICAL HISTORY: Chest pain COMPARISON: March 05, 2021 FINDINGS: An endotracheal tube has been inserted with its tip 17 millimeters above the level of top of the aort ic arch. Feeding tube has its tip in the distal stomach Pneumomediastinum is present. Mild subcutaneous emphysema left neck. Diffuse bilateral pulmonary opacities are again noted IMPRESSION: An endotracheal tube has been inserted with its tip 17 millimeters above the level of to p of the aortic arch. It should be advanced approximately 20 millimeters Pneumomediastinum is present Patient's nurse notified 1:15 p.m. on March 05, 2021
[2021-03-05] MEDS: LORazepam 2 MG/ML VIAL IV PRN (13:51)
[2021-03-05] MEDS: FENOFIBRATE 160 MG TAB PO SCH (14:11)
[2021-03-05] MEDS: propofoL 1,000 MG/100 ML VIAL IV PRN ×3 (15:43→21:10)
[2021-03-05] MEDS: RIVAROXABAN 20 MG TABLET PO SCH (16:47)
[2021-03-05] MEDS ORDERED: VITAL AF 1,000 ML BOT FT SCH (17:00)
[2021-03-05] MEDS ORDERED: VITAL HP 1,000 ML BOT FT SCH (18:00)
[2021-03-05] MEDS ORDERED: VANCOMYCIN 2.25 GM in NA CHLORIDE 0.9% 500 ML IVPB SCH (21:00)
[2021-03-05] MEDS: FAMOTIDINE 20 MG/2 ML VIAL IV SCH (21:10)
[2021-03-05] MEDS ORDERED: CISATRACURIUM INJECTION 2 MG/ML (10 ML Vial) IV ONE (23:31)
[2021-03-05] MEDS ORDERED: NA CHLORIDE 0.9% 100 ML ONE (23:32)
[2021-03-06] MEDS: propofoL 1,000 MG/100 ML VIAL IV PRN ×5 (00:12→17:03)
[2021-03-06] MEDS: METHYLPREDNISOLONE 40 MG INJ IV SCH ×2 (01:13→10:31)
[2021-03-06 05:06] LABS: Absolute Lymphocytes (CBC) 0.2 K/uL (0.7-4.9); Basophils % 0.2 % (0-1.3); Hematocrit 43.8 % (39.6-49.0); Lymphocytes % 1.1 % (15.3-44.8); MPV 8.9 fL (7.6-11.3); RBC Red Blood Cell Count 4.83 M/uL (4.33-5.43)
[2021-03-06] MEDS: FENTANYL CITR 100 MCG/2 ML IV PRN ×2 (05:46→10:40)
[2021-03-06 05:49] LABS: BUN Blood Urea Nitrogen 36 mg/dL (7-18); Bicarbonate 26 mmol/L (21-32); Ferritin 4019.7 ng/mL (26-388); Glucose Level 194 mg/dL (74-106); Potassium 5.5 mmol/L (3.5-5.1); Sodium Level 135 mmol/L (136-145)
[2021-03-06 05:52] VITALS: BMI 29.4
--- NOTE | 2021-03-06 07:25 | P.PN ---
Subjective Date of Service: 03/06/21 Primary Care Provider: Dr. Gagnon Chief Complaint: Respiratory failure Subjective: No new changes (no acute events overnight. intubated yesterday, FiO2: 100%. on wait list for [facility] transfer for potential ECMO) Review of Systems is unable to be obtained Physical Examination - Vital Signs Temperature: 96.9 F Blood Pressure: 128/81 Pulse: 80 Respirations: 24 Pulse Ox (%): 96 Assessment & Plan Physician Review Additional Text: Physical exam GEN: Intubated, sedated HEENT: Normal conjunctiva, sclera anicteric, subcutaneous emphysema palpable in left lower neck CV: Sinus tachycardia, no edema Pulm: On mechanical ventilation, bilateral crackles ABD: Soft, nondistended Integumentary: No rashes Problem list Acute hypoxemic respiratory failure secondary to COVID-19 pneumonia Anxiety Patient intubated and started on mechanical ventilation on 03/05 Continue treatment per Covid protocol, IV steroids, vitamin supplementation. Pulmonology is following Continue to monitor inflammatory markers. Slightly improved Continue Baracitinib Diazepam p.r.n. for anxiety Continue Xarelto Continue monitoring in the ICU. NG tube for feeding. Hypertensive and tachycardia, responds to sedation, may need beta neda Continue cefepime and Diflucan Dispo: on waitlist for [facility] ECMO transfer list guarded prognosis Time Spent Managing Pts Care (In Minutes): 40
[2021-03-06] MEDS: CISATRACURIUM 40 MG in NS 100 ML IV PRN ×2 (07:42→17:10)
--- NOTE | 2021-03-06 07:49 | RAD REPORT ---
EXAM DESCRIPTION: Pedro Single View03/06/2021 7:10 am CLINICAL HISTORY: Respiratory failure COMPARISON: March 05, 2021 FINDINGS: Endotracheal tube has its tip 10 millimeters above the level of the aortic arch. Enteric tube enters the stomach. No significant change in the pneumomediastinum and subcutaneous emphysema No significant change in the diffuse bilateral pulmonary opacities IMPRESSION: No significant change in the diffuse bilateral pulmonary opacities likely pneumonia
--- NOTE | 2021-03-06 08:28 | P.PN ---
Subjective Date of Service: 03/06/21 Primary Care Provider: Dr. Gagnon Chief Complaint: Respiratory failure Condition stable condition stable patient intubated on 100% FiO2 on 100% FiO2 Review of Systems is unable to be obtained Physical Examination - Vital Signs Temperature: 96.9 F Blood Pressure: 128/81 Pulse: 80 Respirations: 24 Pulse Ox (%): 96 - Physical Exam General: Unresponsive Assessment & Plan - Problems (Diagnosis) (1) Pneumonia due to COVID-19 virus Current Visit: Yes Status: Acute Plan: Respiratory failure titrate sat to 90% check arterial blood gases advance endotracheal tube by 1 cm white count is declining white count is declining patient is on tube feeds patient is on tube feeds labs reviewed Physician Review: Patient Assessed, Agree with Above Assessment and Plan
[2021-03-06] MEDS: ASPIRIN EC 81 MG TAB PO SCH (09:00)
[2021-03-06] MEDS: BARICITINIB 2 MG TABLET PO SCH (10:30)
[2021-03-06] MEDS: FAMOTIDINE 20 MG/2 ML VIAL IV SCH (10:31)
[2021-03-06] MEDS: CEFEPIME/SWI 1gm 10 ML IV SCH (10:31)
[2021-03-06] MEDS: VITAMIN D 1000 UNIT TAB PO SCH (10:31)
[2021-03-06] MEDS: THIAMINE HCL 100 MG TABLET PO SCH (10:32)
[2021-03-06] MEDS: ASCORBIC ACID 500 MG TABLET PO SCH ×2 (10:32→12:28)
[2021-03-06] MEDS: FLUCONAZOLE 100 MG TAB PO SCH (10:33)
[2021-03-06] MEDS: FENOFIBRATE 160 MG TAB PO SCH (10:33)
[2021-03-06] MEDS: ZINC SULFATE 220 MG CAP PO SCH (10:33)
[2021-03-06] MEDS: LORazepam 2 MG/ML VIAL IV PRN (12:09)
[2021-03-06] MEDS: MORPHINE 4 MG/ML SYR IV PRN (12:09)
--- NOTE | 2021-03-06 13:02 | RAD REPORT ---
EXAM DESCRIPTION: RAD - Chest Single View - 03/06/2021 12:49 pm CLINICAL HISTORY: Endotracheal tube adjustment COMPARISON: March 06, 2021 FINDINGS: An endotracheal tube has been readjusted. The tip lies at the level of the top of the aort ic arch. . Enteric tube enters the stomach. No significant change in the diffuse bilateral pulmonary opacities, pneumomediastinum and subcutaneou s emphysema. Small left pneumothorax suspected. IMPRESSION: Small left pneumothorax suspected No change in subcutaneous emphysema and pneumomediastinum No significant change diffuse bilateral pulmonary opacities An endotracheal tube has been readjusted. The tip lies at the level of the top of the aortic arch. .
[2021-03-06 14:33] VITALS: O2SAT 90
--- NOTE | 2021-03-06 15:23 | RAD REPORT ---
EXAM DESCRIPTION: RAD - Chest Single View - 03/06/2021 3:10 pm CLINICAL HISTORY: Follow up on left pneumothorax COMPARISON: Chest Single View dated 03/06/2021; Chest Single View dated 03/06/2021; Chest Single View dated 03/05/2021; Chest Single View dated 03/05/2021 FINDINGS: Left-sided pneumothorax is not significantly changed. This is small in size. Support appar atus in similar positioning with endotracheal tube tip at the aortic arch. Weighted feeding tube part ially imaged. Widespread airspace disease similar. Pneumomediastinum and subcutaneous emphysema noted at the neck. IMPRESSION: Small left apical pneumothorax is unchanged. Re- demonstrated widespread bilateral airsp abelino disease.
[2021-03-06 16:20] VITALS: TEMP 98
[2021-03-06 17:33] VITALS: BP 124/67
--- NOTE | 2021-03-06 17:36 | P.DS ---
Admission Date: 02/22/21 Discharge Date: 03/06/21 Primary Care Provider: Dr. Gagnon Disposition: TRANSFER TO [facility] Discharge Condition: CRITICAL Reason for Admission: Respiratory failure, COVID-19 pneumonia Consultations: Pulmonlogy - Dr. Galeana Procedures: CXR (02/22): [id number] pulmonary opacities are present, greater on the left. This likely represents infection/COVID infection. The heart is normal in size. No displaced fractures CTA Chest (02/22): No evidence of pulmonary thromboembolism. Moderate pulmonary findings of COVID-19 infection suspected. CXR (03/04): IMPRESSION: No significant change in extensive bilateral pulmonary opacities probably pneumonia CXR (03/05): Bilateral COVID-19 pneumonia, moderate in severity by imaging, not substantially different from prior day imaging. CXR (03/05): An endotracheal tube has been inserted with its tip 17 millimeters above the level of top of the aortic arch. Feeding tube has its tip in the distal stomach Pneumomediastinum is present. Mild subcutaneous emphysema left neck. Diffuse bilateral pulmonary opacities are again noted IMPRESSION: An endotracheal tube has been inserted with its tip 17 millimeters above the level of top of the aortic arch. It should be advanced approximately 20 millimeters Pneumomediastinum is present CXR (03/06): Endotracheal tube has its tip 10 millimeters above the level of the aortic arch. Enteric tube enters the stomach. No significant change in the pneumomediastinum and subcutaneous emphysema No significant change in the diffuse bilateral pulmonary opacities IMPRESSION: No significant change in the diffuse bilateral pulmonary opacities likely pneumonia CXR (03/06): An endotracheal tube has been readjusted. The tip lies at the level of the top of the aortic arch. . Enteric tube enters the stomach. No significant change in the diffuse bilateral pulmonary opacities, pneumomediastinum and subcutaneous emphysema. Small left pneumothorax suspected. IMPRESSION: Small left pneumothorax suspected No change in subcutaneous emphysema and pneumomediastinum No significant change diffuse bilateral pulmonary opacities An endotracheal tube has been readjusted. The tip lies at the level of the top of the aortic arch. . CXR (03/06): Left-sided pneumothorax is not significantly changed. This is small in size. Support apparatus in similar positioning with endotracheal tube tip at the aortic arch. Weighted feeding tube partially imaged. Widespread airspace disease similar. Pneumomediastinum and subcutaneous emphysema noted at the neck. IMPRESSION: Small left apical pneumothorax is unchanged. Re- demonstrated widespread bilateral airspace disease. Problem list Acute hypoxemic respiratory failure secondary to COVID-19 pneumonia Small Left apical pneumothorax Pneumomediastinum, L subcutaneous emphysema Anxiety Brief History of Present Illness: 50-year-old otherwise healthy male presents emergency department for shortness of breath. Patient reports testing positive for Covid on 02/17/2021, has been on Decadron, ivermectin at home. Patient reports increasing shortness of breath over the course of the last few days. Patient was evaluated in the emergency room and labs are significant for D-dimer 724 sodium 130 chloride 96 GFR 60 glucose 121 ferritin 1118.6 C-reactive protein 104 chest x-ray demonstrates mild to moderate pulmonary opacities greater on the left likely representing Covid, CT PE protocol negative for pulmonary embolism again demonstrating COVID-19 pneumonia. Patient requiring oxygen about 4 L per nasal cannula at this time to maintain saturations greater than 90%. ED provider wishes to admit for further evaluation and management. Hospital Course: Patient was treated with steroids, vitamin supplementation, oxygen supplementation, baricitinib, and xarelto. He had gradual decline and eventually required intubation on 03/05 for progressive hypoxia. After intubation he developed mild subcutaneous emphysema and pneumomediastinum. On 03/06 patient was noted to have a small left sided pneumothorax, and was stable on repeat imaging a few hours later. Per family request, transfer to [facility] was initiated for potential ECMO. Pulmonology was consulted during the hospitalization and recommended against placement of a chest tube for the small left sided pneumo prior to transfer. Patient was more stable and breathing more comfortably on the ventilator with SpO2 in the low-mid 90s, normal heart rate, and PEEP: 10mmHg. Patient was accepted and subsequently transferred to [facility]. Vital Signs/Physical Exam: Temp Pulse Resp BP Pulse Ox 98 F 88 90 H 149/92 H 90 L 03/06/21 16:00 03/06/21 16:00 03/06/21 16:00 03/06/21 16:00 03/06/21 16:00 Laboratory Data at Discharge: WBC 15.40 K/uL (4.3-10.9) H D 03/06/21 04:47 Hgb 14.5 g/dL (13.6-17.9) 03/06/21 04:47 Hct 43.8 % (39.6-49.0) 03/06/21 04:47 Plt Count 186 K/uL (152-406) D 03/06/21 04:47 PT 14.8 SECONDS (9.5-12.5) H 02/22/21 17:28 INR 1.28 02/22/21 17:28 Sodium 135 mmol/L (136-145) L 03/06/21 04:47 Potassium 5.5 mmol/L (3.5-5.1) H 03/06/21 04:47 BUN 36 mg/dL (7-18) H 03/06/21 04:47 Creatinine 0.84 mg/dL (0.55-1.3) 03/06/21 04:47 Glucose 194 mg/dL (74-106) H 03/06/21 04:47 Magnesium 2.7 mg/dL (1.8-2.4) H 02/26/21 02:43 Total Bilirubin 1.4 mg/dL (0.2-1.0) H 03/03/21 09:19 AST 58 U/L (15-37) H 03/03/21 09:19 ALT 87 U/L (12-78) H 03/03/21 09:19 Alkaline Phosphatase 63 U/L (45-117) 03/03/21 09:19 Triglycerides 90 mg/dL (<150) 02/23/21 05:45 Cholesterol 106 mg/dL (<200) 02/23/21 05:45 HDL Cholesterol 29 mg/dL (40-60) L 02/23/21 05:45 Cholesterol/HDL Ratio 3.66 02/23/21 05:45 Home Medications: NK [No Home Meds] 02/23/21 Followup: Chelsi FROST,Simon López DO [Primary Care Provider] - Time spent managing pt's care (in minutes): 60
[2021-03-06 19:03] LABS: Arterial Blood Carboxyhemoglob 0.3 % (0-1.5); Blood Gas Oxyhemoglobin 93.1 % (94-97); Blood O2 Saturation 94.7 % (92-98.5)
[2021-03-07] MEDS ORDERED: ASPIRIN 81 MG CHEWABLE TABLET FT SCH (09:00)
== END 2021-03-06 17:00 | disposition short-term general hospital (02) | DRG 208 ==
LOC: ER 16:03 → ERHOLD 19:54 → 4TH 02-27 19:44 → 3RD-ICU 03-03 14:10
PROVIDERS: ADMIT Internal Medicine Nephrology; ATTEND Hospitalist
PROC: 0BH17EZ Insertion of Endotracheal Airway into Trachea, Via Natural or Artificial Opening (ICD-10-PCS; principal; 2021-03-05)
PROC: 5A1935Z Respiratory Ventilation, Less than 24 Consecutive Hours (ICD-10-PCS; 2021-03-05)
DX: U07.1 COVID-19 (principal); J12.82 Pneumonia due to coronavirus disease 2019; J96.01 Acute respiratory failure with hypoxia; J93.83 Other pneumothorax; T79.7XXA Traumatic subcutaneous emphysema, initial encounter; F41.9 Anxiety disorder, unspecified; R06.03 Acute respiratory distress
CPT/HCPCS: 36415; 71045; 71046; 71275; 80048; 80053; 80061; 80076; 80202; 81003; 81015; 82728; 82805; 82947; 83735; 83880; 84439; 84443; 84484; 85025; 85379; 85610; 86140; 87040; 87086; 87088; 94002; 94003; 94660; 94760; 96374; 96375; 99284; J0330; J0692; J1630; J1650; J1940; J2270; J2405; J2704; J2920; J2930; J3010; J3370; J7030; J7040; J7050; Q9967; U0003